=== PATIENT | female | born 1995 | race Caucasian/White ===

== ENCOUNTER 2020-05-26 04:57 | Inpatient (IN) | payer BC, SELFPAY ==
[2020-05-26] VITALS (177 sets, daily range): BP systolic 80–155; BP diastolic 28–94; PULSE 72–168; RESP 12–18; TEMP 36.5–38; O2SAT 94–100; BMI 29.2
[2020-05-26] MEDS: LACTATED RINGERS 1,000 ML 125 ML IV CONT ×3 (05:53→11:56)
[2020-05-26 05:54] LABS: Basophils Percent Auto 0.3 % (0.2-1.2); Eosinophils Absolute Auto 0.1 K/mm3 (0-0.3); Eosinophils Percent Auto 1.2 % (0-4.4); Hematocrit 38.3 % (37.0-47.0); Hemoglobin 13.2 g/dL (12.0-15.0); Immature Granulocyte Absolute 0.09 K/mm3 (0.00-0.031); Lymphocytes Absolute Auto 1.92 K/mm3 (0.9-3.2); Lymphocytes Percent Auto 20.4 % (18.3-44.2); Mean Corpuscular HGB Conc 34.5 g/dl (32-36); Mean Corpuscular Hemoglobin 30.9 pg (26-34); Mean Corpuscular Volume 89.7 fl (80-100); Mean Platelet Volume 9.5 fl (7.4-10.4); Monocytes Absolute Auto 0.7 K/mm3 (0.1-0.6); Monocytes Percent Auto 6.9 % (2.6-8.5); Neutrophils Absolute Auto 6.6 K/mm3 (1.3-6.7); Neutrophils Percent Auto 70.2 % (45.5-73.1); Platelet Count Result 228 k/mm3 (150-375); Red Blood Count 4.27 M/mm3 (4.2-5.4); Red Cell Distribution Width 12.6 % (11.5-14.5); White Blood Count 9.4 K/mm3 (4.5-10.0)
[2020-05-26] MEDS: OXYTOCIN 30 UNITS/NS 500 ML 30 UNITS/500 ML BAG 6 UNITS IV CONT (05:54)
--- NOTE | 2020-05-26 06:26 | PM.IMHP ---
H&P: HPI History of Present Illness Date/Time: 05/26/20 06:26 Chief complaint: Induction of Labor Narrative: Elizabeth Cole is a 25 year old female whose last menstrual period was 08/27/2019, EDC is 05/29/2020, presents at 39 and half weeks gestation for induction of labor. has been uncomplicated. She has a favorable cervix. Risks and benefits of induction reviewed. She has an epidural candidate Review of Systems Review of Systems: All systems reviewed & are unremarkable except as noted in HPI and below PMFSH Family History Family History Grandparent S/P MAXWELL (total abdominal hysterectomy) Cervical cancer Mother S/P MAXWELL (total abdominal hysterectomy) Cervical cancer Social History Social History Smoking status: Never smoker Substance use: never Spiritual care concerns: No Meds Home Medications and Allergies Home Medications Medication Instructions Recorded Confirmed Type PNV cmb#95-ferrous fumarate-FA 1 tablet PO DAILY 05/04/20 05/04/20 History [] Allergies Allergy/AdvReac Type Severity Reaction Status Date / Time No Known Allergies Allergy Verified 05/04/20 12:37 Vital Signs Vital Signs - 24 hr 05/26/20 06:00 05/26/20 06:01 05/26/20 06:16 Pulse Rate 101 H 92 93 Blood Pressure 119/79 127/84 127/85 Exam Const: General: no acute distress Eyes: General: appearance normal, both eyes and all related structures Neck: Neck: supple and no JVD Thyroid: thyroid normal Resp: Effort & Inspection: normal respiratory effort Auscultation: clear to auscultation bilaterally Cardio: Rate: regular rate Rhythm: regular rhythm GI: Percussion: Yes tympanic to percussion ( gravid soft uterus is palpated) : General: Yes bladder normal to palpation External Female Exam: normal external appearance Speculum Exam - Vagina: normal appearance of the vagina Speculum Exam - Cervix: Cervical os closed ( cervix 3/70%/-1. AROM clear. FHTs reassuring) Skin: General skin exam: no rashes or lesions noted Extrem: General: normal to inspection and no edema Psych: Mental Status: mental status grossly normal Affect: normal affect H&P: Results Labs Labs: Short CBC 05/26/20 Range/Units 05:45 WBC 9.4 (4.5-10.0) K/mm3 Hgb 13.2 (12.0-15.0) g/dL Hct 38.3 (37.0-47.0) % Plt Count 228 (150-375) k/mm3 Assessment and Plan Additional Plan impression: Term with favorable cervix Plan: Medical induction of labor. Spontaneous vaginal delivery is expected. She has an epidural candidate
--- NOTE | 2020-05-26 08:47 | P.PNAN_ITS ---
Anes - Eval Pre Procedure Procedure: labor epidural Date/Time: 05/26/20 08:47 Preop Diagnosis: labor pain Pre Op Diagnosis: Induction of Labor Patient Data Age: 25 Gender: F Height: 5 ft 3 in Weight: 75 kg Last Vital Signs Pulse 110 H 05/26/20 08:33 BP 132/56 L 05/26/20 08:33 Pulse Ox 95 05/26/20 08:47 Allergies Allergy/AdvReac Type Severity Reaction Status Date / Time No Known Allergies Allergy Verified 05/04/20 12:37 Home Medications Medication Instructions Recorded Confirmed Type PNV cmb#95-ferrous fumarate-FA 1 tablet PO DAILY 05/04/20 05/04/20 History [] Laboratory Tests 05/26/20 05/26/20 05/26/20 05:45 05:45 05:45 WBC 9.4 K/mm3 K/mm3 (4.5-10.0) RBC 4.27 M/mm3 M/mm3 (4.2-5.4) Hgb 13.2 g/dL g/dL (12.0-15.0) Hct 38.3 % % (37.0-47.0) MCV 89.7 fl fl (80-100) MCH 30.9 pg pg (26-34) MCHC 34.5 g/dl g/dl (32-36) RDW 12.6 % % (11.5-14.5) Plt Count 228 k/mm3 k/mm3 (150-375) MPV 9.5 fl fl (7.4-10.4) Immature Gran % (Auto) 1.0 % H % (0-0.5) Neut % (Auto) 70.2 % % (45.5-73.1) Lymph % (Auto) 20.4 % % (18.3-44.2) [place] % (Auto) 6.9 % % (2.6-8.5) Eos % (Auto) 1.2 % % (0-4.4) Baso % (Auto) 0.3 % % (0.2-1.2) Lymph # (Auto) 1.92 K/mm3 K/mm3 (0.9-3.2) [place] # (Auto) 0.7 K/mm3 H K/mm3 (0.1-0.6) Eos # (Auto) 0.1 K/mm3 K/mm3 (0-0.3) Baso # (Auto) 0.0 K/mm3 K/mm3 (0.0-0.1) Abs Immat Gran (auto) 0.09 K/mm3 H K/mm3 (0.00-0.031) Absolute Neuts (auto) 6.6 K/mm3 K/mm3 (1.3-6.7) Absolute Nucleated RBC 0.0 K/mm3 K/mm3 (0.0-0.012) Nucleated RBC % 0.0 % % (0.0-0.2) RPR Pending Blood Type O Positive Antibody Screen Negative Patient hx anesthesia problems: none Family hx anesthesia problems: none [facility] Family History Family History Grandparent S/P MAXWELL (total abdominal hysterectomy) Cervical cancer Mother S/P MAXWELL (total abdominal hysterectomy) Cervical cancer Social History Social History Smoking status: Never smoker Substance use: never Spiritual care concerns: No Exam Day of Procedure 05/26/20 08:47
[2020-05-26 08:50] LABS: Rapid Plasma Reagin Non-Reactive (NonReactive)
--- NOTE | 2020-05-26 11:46 | PM.OBPNVD ---
OB - PN: Subj Subjective Date/time seen: 05/26/20 11:46 cx 9 by rn exam fhts with variables but reassuring epidural working OB - PN: Obj Data Labs CBC & Chem 7: 05/26/20 05:45 Labs: Laboratory Results - last 24 hr 05/26/20 05/26/20 05/26/20 05:45 05:45 05:45 WBC 9.4 RBC 4.27 Hgb 13.2 Hct 38.3 MCV 89.7 MCH 30.9 MCHC 34.5 RDW 12.6 Plt Count 228 MPV 9.5 Immature Gran % (Auto) 1.0 H Neut % (Auto) 70.2 Lymph % (Auto) 20.4 [place] % (Auto) 6.9 Eos % (Auto) 1.2 Baso % (Auto) 0.3 Lymph # (Auto) 1.92 [place] # (Auto) 0.7 H Eos # (Auto) 0.1 Baso # (Auto) 0.0 Abs Immat Gran (auto) 0.09 H Absolute Neuts (auto) 6.6 Absolute Nucleated RBC 0.0 Nucleated RBC % 0.0 RPR Non-reactive Blood Type O Positive Antibody Screen Negative OB - PN A/P Time Spent With Patient Time: Total time spent is greater than 50% in coordination of care (as documented) at patient's floor/unit and/or counseling patient:
--- NOTE | 2020-05-26 16:12 | PM.OBPNVD ---
OB - PN: Subj Subjective Date/time seen: 05/26/20 16:12 cx complete fhts ok begin pushing OB - PN: Obj Data Labs CBC & Chem 7: 05/26/20 05:45 Labs: Laboratory Results - last 24 hr 05/26/20 05/26/20 05/26/20 05:45 05:45 05:45 WBC 9.4 RBC 4.27 Hgb 13.2 Hct 38.3 MCV 89.7 MCH 30.9 MCHC 34.5 RDW 12.6 Plt Count 228 MPV 9.5 Immature Gran % (Auto) 1.0 H Neut % (Auto) 70.2 Lymph % (Auto) 20.4 [place] % (Auto) 6.9 Eos % (Auto) 1.2 Baso % (Auto) 0.3 Lymph # (Auto) 1.92 [place] # (Auto) 0.7 H Eos # (Auto) 0.1 Baso # (Auto) 0.0 Abs Immat Gran (auto) 0.09 H Absolute Neuts (auto) 6.6 Absolute Nucleated RBC 0.0 Nucleated RBC % 0.0 RPR Non-reactive Blood Type O Positive Antibody Screen Negative OB - PN A/P Time Spent With Patient Time: Total time spent is greater than 50% in coordination of care (as documented) at patient's floor/unit and/or counseling patient:
--- NOTE | 2020-05-26 18:06 | P.PNOB_ITS ---
OB - PN: Subj Subjective Date/time seen: 05/26/20 18:06 recurrent lates, recovering offered section as no advancement patient aggrees OB - PN: Obj Data Labs CBC & Chem 7: 05/26/20 05:45 Labs: Laboratory Results - last 24 hr 05/26/20 05/26/20 05/26/20 05:45 05:45 05:45 WBC 9.4 RBC 4.27 Hgb 13.2 Hct 38.3 MCV 89.7 MCH 30.9 MCHC 34.5 RDW 12.6 Plt Count 228 MPV 9.5 Immature Gran % (Auto) 1.0 H Neut % (Auto) 70.2 Lymph % (Auto) 20.4 [place] % (Auto) 6.9 Eos % (Auto) 1.2 Baso % (Auto) 0.3 Lymph # (Auto) 1.92 [place] # (Auto) 0.7 H Eos # (Auto) 0.1 Baso # (Auto) 0.0 Abs Immat Gran (auto) 0.09 H Absolute Neuts (auto) 6.6 Absolute Nucleated RBC 0.0 Nucleated RBC % 0.0 RPR Non-reactive Blood Type O Positive Antibody Screen Negative OB - PN A/P Time Spent With Patient Time: Total time spent is greater than 50% in coordination of care (as documented) at patient's floor/unit and/or counseling patient:
--- NOTE | 2020-05-26 18:51 | PM.PROC ---
Procedure Note - Detailed Date of procedure: 05/26/20 Pre-op diagnosis: Induction of Labor Surgeon: Alejo Crabtree MD Postop diagnosis intolerance to labor Procedure: Primary low-transverse section Findings: Male infant nuchal cord x1 8 lb 12 oz from excellent cry Q BL: 600cc Anesthesia: Epidural Complications: None Description of procedure: The patient was brought in early a.m. for artificial rupture membranes at term. She progressed to 10cm although she did slow after about 9. IUPC was placed in she began to have recurrent late decelerations positioning IV fluids stopping Pitocin and the typical means for unsuccessful and decision was made for low-transverse section large PE was expected and progress was slow. After pain formed consent she was taken back prepped. She was prepped and draped in the normal sterile fashion and placed in the supine position. Under excellent epidural anesthesia a Pfannenstiel incision was made the incision progressive layers to fascia. Fascia was incised for about fashion bilaterally. Underlying muscles sharply dissected and parietal peritoneum elevated [place] clamp. This was carried superiorly and then inferiorly the dome of the bladder bladder blade placed and bladder flap was formed a low-transverse incision made the head delivered in the SHELBY position and nuchal cord was noted be loose x1 relieved around the occiput anterior posterior shoulder delivered spontaneously cord clamped x2 cut and passed off the table of next o'clock cry. Placenta delivered intact manually uterus delivered and wrapped in a moist towel. After assuring no membranes or debris remained uterus, the uterus was closed with continuous running locking 0 Vicryl from lateral edge to lateral edge. This was followed by a 2nd imbricating running locking 0 Vicryl from lateral edge to lateral edge hemostasis was assured and blood loss was estimated the uterine incision was clean dry and intact. The ovaries and tubes appeared within normal limits. The uterus returned to the abdomen. The lateral gutters and surgical area was cleaned of any debris. All sponge and needle counts were correct at that point. The fascia was then closed with continuous running 0 Vicryl from lateral edge to midline bilaterally. Irrigation was undertaken subcutaneous layer and the skin closed with 4 Monocryl and glue. Blood loss was estimated [id number]. All sponge, needle, instrument counts were correct. There were no immediate complications
[2020-05-26] MEDS: MEPERIDINE HCL INJ 50 MG/ML AMPUL 25 MG IV PUSH (19:15)
[2020-05-26] MEDS: ONDANSETRON INJ 4 MG/2 ML VIAL IV PUSH (19:40)
[2020-05-26] MEDS: KETOROLAC 30 MG/ML VIAL (*BKC) IV PUSH (19:42)
--- NOTE | 2020-05-26 22:42 | OBPPTRN ---
Patient transferred to post room # 286 via stretcher; transferred to bed. Support person and present. Oriented to unit, room, information board, rooming in, admission packet and security measures. Patient verbalizes understanding.
[2020-05-26] MEDS: DEXTROSE 5%/0.45% SOD CHL 1,000 ML 125 ML IV CONT (23:37)
[2020-05-27 00:20] VITALS: BP 105/63; PULSE 94; RESP 18; TEMP 36.7; O2SAT 98
[2020-05-27 05:00] VITALS: BP 108/67; PULSE 88; RESP 18; TEMP 36.8; O2SAT 100
[2020-05-27 05:38] LABS: Basophils Percent Auto 0.2 % (0.2-1.2); Eosinophils Percent Auto 0.2 % (0-4.4); Hematocrit 29.2 % (37.0-47.0); Hemoglobin 9.7 g/dL (12.0-15.0); Immature Granulocyte Absolute 0.13 K/mm3 (0.00-0.031); Immature Granulocyte Percent A 0.9 % (0-0.5); Lymphocytes Absolute Auto 1.45 K/mm3 (0.9-3.2); Lymphocytes Percent Auto 10.4 % (18.3-44.2); Mean Corpuscular HGB Conc 33.2 g/dl (32-36); Mean Corpuscular Hemoglobin 30.2 pg (26-34); Mean Platelet Volume 10.2 fl (7.4-10.4); Monocytes Percent Auto 6.8 % (2.6-8.5); Neutrophils Absolute Auto 11.4 K/mm3 (1.3-6.7); Neutrophils Percent Auto 81.5 % (45.5-73.1); Platelet Count Result 181 k/mm3 (150-375); Red Blood Count 3.21 M/mm3 (4.2-5.4); Red Cell Distribution Width 12.5 % (11.5-14.5)
--- NOTE | 2020-05-27 06:50 | PM.OBPNVD ---
OB - PN: Subj Subjective Date/time seen: 05/27/20 06:50 Patient comments: no complaints and pain well controlled baby status: doing well and nursing well OB - PN: Obj Data Labs CBC & Chem 7: 05/27/20 04:41 Labs: Laboratory Results - last 24 hr 05/26/20 05/26/20 05/27/20 05:45 05:45 04:41 WBC 14.0 H RBC 3.21 L Hgb 9.7 L D Hct 29.2 L MCV 91.0 MCH 30.2 MCHC 33.2 RDW 12.5 Plt Count 181 MPV 10.2 Immature Gran % (Auto) 0.9 H Neut % (Auto) 81.5 H Lymph % (Auto) 10.4 L [place] % (Auto) 6.8 Eos % (Auto) 0.2 Baso % (Auto) 0.2 Lymph # (Auto) 1.45 [place] # (Auto) 1.0 H Eos # (Auto) 0.0 Baso # (Auto) 0.0 Abs Immat Gran (auto) 0.13 H Absolute Neuts (auto) 11.4 H Absolute Nucleated RBC 0.0 Nucleated RBC % 0.0 RPR Non-reactive Blood Type O Positive Antibody Screen Negative OB - PN A/P Plan day: 1 Plan: routine care Time Spent With Patient Time: Total time spent is greater than 50% in coordination of care (as documented) at patient's floor/unit and/or counseling patient: Time with patient: less than 15 minutes Review of Systems Review of Systems: All systems reviewed & are unremarkable except as noted in HPI and below Exam Const: General: no acute distress Eyes: General: appearance normal, both eyes and all related structures Neck: Neck: supple and no JVD Thyroid: thyroid normal Resp: Effort & Inspection: normal respiratory effort Auscultation: clear to auscultation bilaterally Cardio: Rate: regular rate Rhythm: regular rhythm GI: Inspection: normal to inspection and incision (cdi) Percussion: Yes normal to percussion Auscultation: normal bowel sounds : General: Yes bladder normal to palpation External Female Exam: normal external appearance Speculum Exam - Vagina: normal vaginal discharge and No vaginal bleeding Speculum Exam - Cervix: nontender Bimanual exam- vagina & uterus: bladder normal to palpation and No Cervical tenderness present OB/external & speculum: No vaginal bleeding Skin: General skin exam: no rashes or lesions noted Extrem: General: normal to inspection and no edema Psych: Mental Status: mental status grossly normal Affect: normal affect
[2020-05-27 07:45] VITALS: BP 121/81; PULSE 95; RESP 16; TEMP 36.9; O2SAT 98
--- NOTE | 2020-05-27 08:12 | WPDANLDNPN2 ---
Anes-Prog Note L&D-Neuraxial Date/Time: 05/27/20 08:12 Neuraxial medications: epidural PF morphine Opiod-related complaints: none Patient feedback: Patient satisfied with post-operative pain management.
--- NOTE | 2020-05-27 08:12 | WPDANLDPN2 ---
Anes-Prog Note L&D Date/Time: 05/27/20 08:12 Comfortable throughout: section Neuraxial method: epidural Epidural/Spinal procedure site: clean & non-tender Neuro status: Neuro function grossly intact. Cardiovascular status: normal Respiratory status: normal Airway patency: baseline Mental status: baseline Post-Op hydration status: normal Vital Signs: Last Vital Signs Temp 36.8 C 05/27/20 05:00 Pulse 88 05/27/20 05:00 Resp 18 05/27/20 05:00 BP 108/67 05/27/20 05:00 Pulse Ox 100 05/27/20 05:00 I/O: Intake & Output 05/26/20 05/27/20 05/27/20 23:59 07:59 15:59 Intake Total 1100 1740 Output Total 800 2300 Balance 300 -560 Post-procedural complaints: none Patient feedback: Patient satisfied with anesthetic care.
--- NOTE | 2020-05-27 09:15 | PC.NURSE ---
Mother called out for assist with feeding. Mother reports she is using a nipple shield for all feedings. Infant has had several good feedings since reported by parents. Discussed nipple shield precautions and possible complications. Instructions given on application and cleaning of shield. Patient able to return demonstration on proper application of shield. Discussed the need to initiate regular pumping if infant continues to nurse with the shield. Patient verbalizes understanding. Reviewed infant feeding cues, frequencies, duration of feedings, feeding elimination flow sheet, and signs of adequate intake. Demonstrated stimulation techniques to wake infant for feeding. Assisted with to breast. Reviewed positioning/alignment in cross cradle, holding breast in U hold and guided asymmetrical latch on. Infant was able to latch correctly. Once was latched to breast he made no effort to suckle. Reviewed signs of a correct latch, effective nursing and suck swallow ratio, infant made a few weak sucks followed by long pausing. Discussed infant may be sleepy from recent circumcision and Tylenol. With in the 30 minute of attempt, nurse for bursts of good draws with rhythmic draws and occasional swallowing. Requested mother call out for next feeding for observation and to do a blood glucose check.
[2020-05-27] MEDS: POLYSACCHARIDE IRON COMPLEX 150 MG CAPSULE PO ×2 (09:50→17:52)
[2020-05-27] MEDS: IBUPROFEN 600 MG TABLET PO ×2 (09:51→19:43)
[2020-05-27] MEDS: MULTIVIT/MIN/PREN/FOL AC/IRON TABLET 1 TAB PO (09:51)
[2020-05-27] MEDS: DOCUSATE SODIUM 100 MG CAPSULE PO ×2 (09:51→17:52)
[2020-05-27 12:00] VITALS: BP 104/65; PULSE 91; RESP 16; TEMP 36.9; O2SAT 97
--- NOTE | 2020-05-27 13:00 | PC.NURSE ---
Breast pump provided due to nipple shield use/ineffective feeding. Instructions given on breast pump care and usage, pumping schedule, nipple care, and collection and storage of breast milk. Encouraged [id number], breast massage and manual expression to stimulate supply. Assessed patient for correct flange size, placement and draw. Patient verbalizes and demonstrates understanding of instructions.
[2020-05-27 16:00] VITALS: BP 111/71; PULSE 85; RESP 16; TEMP 37.2; O2SAT 98
[2020-05-27] MEDS: HYDROCORTISONE 1% 30 GM CREAM 1 APPLIC TOPICAL (17:52)
[2020-05-27 20:10] VITALS: BP 118/85; PULSE 100; RESP 15; TEMP 36.9; O2SAT 97
--- NOTE | 2020-05-28 07:41 | PM.DS ---
DS: Admitting Diagnosis Admitting Diagnosis Admitting Diagnosis: Induction of Labor DS: Summary Time Spent with Patient Time attestation: Total time spent providing and/or coordinating discharge services: Exam Const: General: no acute distress Eyes: General: appearance normal, both eyes and all related structures Neck: Neck: supple and no JVD Thyroid: thyroid normal Resp: Effort & Inspection: normal respiratory effort Auscultation: clear to auscultation bilaterally Cardio: Rate: regular rate Rhythm: regular rhythm GI: Inspection: non-distended GI Palp: Yes Soft to palpation, No Tenderness to palpation present (GI) and No Guarding due to palpation present (GI) Auscultation: normal bowel sounds : General: Yes bladder normal to palpation External Female Exam: normal external appearance Speculum Exam - Vagina: normal vaginal discharge and No vaginal bleeding Speculum Exam - Cervix: nontender Bimanual exam- vagina & uterus: bladder normal to palpation and No Cervical tenderness present OB/external & speculum: No vaginal bleeding Skin: General skin exam: no rashes or lesions noted Extrem: General: normal to inspection and no edema Psych: Mental Status: mental status grossly normal Affect: normal affect Discharge Plan Discharge Attending physician on discharge: Alejo Crabtree Consulting providers: Etelvina Saldaña Discharging Clinician: Alejo Crabtree Patient Disposition: Home, Self-Care Activity: may shower, no straining, may drive after 2 weeks, pelvic rest and other - see discharge instructions Diet: heart healthy Wound Care Instructions: follow printed instructions Patient Instructions: Antibiotic Form Stand Alone Forms: General Discharge Information Follow-up/Referrals: Alejo Crabtree MD [Physician] - Discharge Medications: New hydrocodone-acetaminophen [[place]] 5-325 mg tablet 1 tablet PO Q4H PRN (Reason: pain) Qty: 30 RF: 0 Continued PNV cmb#95-ferrous fumarate-FA [] 28 mg iron- 800 mcg Tablet 1 tablet PO DAILY RF: 0 Date of admission: 05/26/20 04:57 Primary Care Provider: PHYSICIAN,FIELD PRODUCER Admitting Provider: Alejo Crabtree Attending physician on admission: Alejo Crabtree
--- NOTE | 2020-05-28 07:42 | PM.OBPNVD ---
OB - PN: Subj Subjective Date/time seen: 05/28/20 07:42 Patient comments: no complaints and pain well controlled baby status: doing well and nursing well OB - PN: Obj Data Labs CBC & Chem 7: 05/27/20 04:41 OB - PN A/P Plan day: 2 Plan: routine care, discharge home and follow up 6 weeks (4 wweks) Time Spent With Patient Time: Total time spent is greater than 50% in coordination of care (as documented) at patient's floor/unit and/or counseling patient: Time with patient: less than 15 minutes Review of Systems Review of Systems: All systems reviewed & are unremarkable except as noted in HPI and below Exam Const: General: no acute distress Eyes: General: appearance normal, both eyes and all related structures Neck: Neck: supple and no JVD Thyroid: thyroid normal Resp: Effort & Inspection: normal respiratory effort Auscultation: clear to auscultation bilaterally Cardio: Rate: regular rate Rhythm: regular rhythm GI: Inspection: non-distended GI Palp: Yes Soft to palpation, No Tenderness to palpation present (GI) and No Guarding due to palpation present (GI) Auscultation: normal bowel sounds : General: Yes bladder normal to palpation External Female Exam: normal external appearance Speculum Exam - Vagina: normal vaginal discharge and No vaginal bleeding Speculum Exam - Cervix: nontender Bimanual exam- vagina & uterus: bladder normal to palpation and No Cervical tenderness present OB/external & speculum: No vaginal bleeding Skin: General skin exam: no rashes or lesions noted Extrem: General: normal to inspection and no edema Psych: Mental Status: mental status grossly normal Affect: normal affect
[2020-05-28 08:15] VITALS: BP 132/79; PULSE 99; RESP 18; TEMP 36.2; O2SAT 99
[2020-05-28] MEDS: MULTIVIT/MIN/PREN/FOL AC/IRON TABLET 1 TAB PO (08:58)
[2020-05-28] MEDS: POLYSACCHARIDE IRON COMPLEX 150 MG CAPSULE PO (08:58)
[2020-05-28] MEDS: IBUPROFEN 600 MG TABLET PO (08:58)
[2020-05-28] MEDS: DOCUSATE SODIUM 100 MG CAPSULE PO (08:58)
--- NOTE | 2020-05-28 10:45 | PC.NURSE ---
Mother is able to independently latch with appropriate positioning/alignment using nipple shield. She denies any nipple discomfort, is feeding as required and waking to feed if needed. Infant is more awake and eagerly feeding for bursts each feeding. has had several effective feedings in the past 24 hours, and is currently meeting outcomes for output, jaundice and feeding frequencies. is close to 8% weight loss and ICP has suggested supplementation until mother's milk is in and gaining weight. Discussed feeding plan to supplement 15-25 mils increasing as 's needs increase. Discussed her ICP will determine when supplementation may be discontinued by status. Mother may used EBM/formula as supplement. Mother is pumping after each feeding without difficulties. Discussed weaning techniques from shield and when infant may be ready to initiate weaning. Mother states she feels confident to continue effective /supplementation at home. Reviewed transition to breast milk, signs of adequate intake, and engorgement/relief. Instructed to call ICP if intake/output less than required. Reviewed regular medications mother is taking. Information provided per Catie. Reviewed community resources on the [facility] website and in the Mom/Baby guide. Information on outpatient services provided. Mother has no further questions at this time.
[2020-05-29 10:46] VITALS: BP 127/89; PULSE 88; RESP 20; TEMP 36.7; O2SAT 98
== END 2020-05-28 13:21 | disposition home or self-care (01) | DRG 787 ==
LOC: ANHLDR 05:03 → ANHOB2 21:35
PROVIDERS: Admitting Provider Obstetrics & Gynecology; Visit Provider Obstetrics & Gynecology
PROC: 10D00Z1 Extraction of Products of Conception, Low, Open Approach (ICD-10-PCS; CPT 59514; principal; 2020-05-26 18:15)
DX: O69.81X0 Labor and delivery complicated by cord around neck, without compression, not applicable or unspecified (principal); O75.2 Pyrexia during labor, not elsewhere classified; Z37.0 Single live birth; Z3A.39 39 weeks gestation of pregnancy; O36.8330 Maternal care for abnormalities of the fetal heart rate or rhythm, third trimester, not applicable or unspecified
CPT/HCPCS: 36415; 85025; 86592; 86850; 86900; 86901; A9270; J0131; J0690; J1885; J2175; J2274; J2405; J2590; J2795; J7120

== ENCOUNTER 2024-06-28 06:31 | Emergency (ER) | payer OTHER, SELFPAY ==
--- NOTE | ~2024-06-28 | CT_ITS ---
CT of the Abdomen and Pelvis: Indication: Epigastric pain Technique: 2.5 mm axial scans were obtained through the abdomen and pelvis following intravenous adm inistration of 100 cc of Omnipaque 350. Dose reduction technique was used on this scan by utilizing a utomated exposure control and iterative reconstruction technique. The dose-length product (DLP) was 2 78.74 mGy-cm. Findings: Scans through the lung bases are unremarkable. The liver, spleen, pancreas, gallbladder, adrenals and kidneys are within normal limits. No evidence of aortic aneurysm. No lymphadenopathy. No bowel obstruction or bowel wall thickening. Questionable intraluminal small bowel mass versus foca l intraluminal ingested contents (axial images [id number], left of midline.. Images through the pelvis were performed. Urinary bladder unremarkable. No pelvic mass seen. Small am ount of pelvic free fluid present. Impression: Questionable intraluminal small bowel mass versus focal intraluminal ingested material. No bowel obst ruction. Reviewed, dictated and finalized at location . Impression: Questionable intraluminal small bowel mass versus focal intraluminal ingested m aterial. No bowel obstruction.
--- NOTE | 2024-06-28 06:40 | ECG_ITS ---
Test Date: 2024-06-28 07:16:55 Measurements Intervals [facility] Rate: 87 P: 50 OR: 189 QRS: 79 QRSD: 94 T: 44 QT: 340 QTc: 409 Interpretive Statements SINUS RHYTHM WITH SINUS ARRHYTHMIA MODERATE T-WAVE ABNORMALITY, CONSIDER ANTERIOR ISCHEMIA [-0.1+ mV T-WAVE IN V3/V4] ABNORMAL ECG No previous ECG available for comparison Electronically Signed On 06-28-2024 12:33:39 CDT by Pritesh Acosta M.D.
[2024-06-28 06:51] VITALS: BP 144/95; PULSE 107; RESP 15; TEMP 36.6; O2SAT 100
[2024-06-28 07:11] LABS: Basophils Percent Auto 0.9 % (0.2-1.2); Eosinophils Absolute Auto 0.1 K/mm3 (0-0.3); Eosinophils Percent Auto 2.9 % (0-4.4); Hematocrit 40.5 % (37.0-47.0); Hemoglobin 13.4 g/dL (12.0-15.0); Immature Granulocyte Absolute 0.01 K/mm3 (0.00-0.031); Immature Granulocyte Percent A 0.2 % (0-0.5); Lymphocytes Absolute Auto 1.35 K/mm3 (0.9-3.2); Lymphocytes Percent Auto 29.7 % (18.3-44.2); Mean Corpuscular HGB Conc 33.1 g/dl (32-36); Mean Corpuscular Hemoglobin 29.3 pg (26-34); Mean Corpuscular Volume 88.6 fl (80-100); Mean Platelet Volume 9.2 fl (7.4-10.4); Monocytes Absolute Auto 0.3 K/mm3 (0.1-0.6); Monocytes Percent Auto 5.9 % (2.6-8.5); Neutrophils Absolute Auto 2.8 K/mm3 (1.3-6.7); Neutrophils Percent Auto 60.4 % (45.5-73.1); Platelet Count Result 265 k/mm3 (150-375); Red Blood Count 4.57 M/mm3 (4.2-5.4); Red Cell Distribution Width 11.6 % (11.5-14.5); White Blood Count 4.6 K/mm3 (4.5-10.0)
[2024-06-28 07:21] LABS: Alanine Aminotransferase 18 U/L (6-35); Albumin Level 4.7 g/dL (3.5-5.1); Alkaline Phosphatase 89 U/L (38-126); Anion Gap 11 mmol/L (4-12); Aspartate Amino Transferase 23 U/L (14-36); Bilirubin,Total 0.3 mg/dL (0.2-1.3); Blood Urea Nitrogen 17 mg/dL (7-17); Calcium 9.8 mg/dL (8.4-10.2); Carbon Dioxide 24 mmol/L (22-30); Chloride 103 mmol/L (98-107); Estimated CRCL calculation 96 ml/min; Estimated Glomerular Filt Rate > 60; Glucose 136 mg/dL (65-110); Lipase 67 U/L (23-300); Potassium 4.1 mmol/L (3.4-5.0); Sodium 138 mmol/L (137-145)
[2024-06-28] MEDS: ONDANSETRON INJ 4 MG/2 ML VIAL IV PUSH (07:40)
[2024-06-28] MEDS: FAMOTIDINE 20 MG/2 ML VIAL IV PUSH (07:40)
[2024-06-28 07:48] LABS: Add Urine Microscopic? NO; Appearance Urine Clear (Clear); Bilirubin Urine Negative (Negative); Blood Urine Negative (Negative); Color Urine Yellow (Yellow); Glucose Urine UA Negative (Negative); Ketones Urine Negative (Negative); Leukocyte Esterase Ur Negative LEU/UL (Negative); Nitrate Urine Negative (Negative); Protein Urine Negative (Negative); Specific Grav Ur 1.025 (1.001-1.035); Urobilinogen Urine 0.2 mg/dL (<2.0); pH Urine 6.5 (5.0-9.0)
--- NOTE | 2024-06-28 07:52 | ED.ABDPAIN ---
HPI - Abdominal Pain General Chief Complaint: Abdominal Pain Stated Complaint: epigastric pain X1 week Time Seen by Provider: 06/28/24 07:04 History of Present Illness HPI narrative: Patient presents with epigastric pain that started last night and woke her out of sleep, she had similar symptoms last week which he thought was because she had eaten a buffalo chicken sandwich, which got better after some Tums and patsy benito, this time she has some Sami fries and pizza. No significant nausea or vomiting. Had normal BMs Related Data Home Medications Medication Instructions Recorded Confirmed vit no.95-ferrous 1 tablet PO DAILY 05/04/20 05/04/20 fumarate 28 mg-folic acid 800 mcg tablet () Allergies Allergy/AdvReac Type Severity Reaction Status Date / Time No Known Allergies Allergy Verified 06/28/24 06:31 Review of Systems Review of Systems: All systems reviewed & are unremarkable except as noted in HPI and below PMFSH Family History Family History Grandparent S/P MAXWELL (total abdominal hysterectomy) Cervical cancer Mother S/P MAXWELL (total abdominal hysterectomy) Cervical cancer Social History Social History Smoking status: Never smoker Substance use: never Spiritual care concerns: No Exam Narrative: EXAMINATION OF ORGAN SYSTEMS/BODY AREAS: Constitutional: Vital signs per nursing GENERAL:[No acute distress, non-toxic appearing.] HEAD: Normal with no signs of head trauma. EYES: EOMI, conjunctiva normal ENT: Hearing grossly intact LUNGS: Nonlabored breathing. HEART: [Regular rate and rhythm] ABD: [Soft], slightly tender to palpation epigastric abdomen EXT: Normal range of motion SKIN: [No rashes or lesions.] NEURO: [Alert and oriented x 3. No gross focal sensory or strength deficits.] PSYCH: Normal affect Course Vital Signs Vital signs: Vital Signs Temperature 98 F 06/28/24 06:51 Pulse Rate 107 H 06/28/24 06:51 Respiratory Rate 15 06/28/24 06:51 Blood Pressure 144/95 H 06/28/24 06:51 Pulse Oximetry 100 06/28/24 06:51 Oxygen Delivery Room Air 06/28/24 06:51 Temperature 98 F 06/28/24 06:51 Pulse Rate 74 06/28/24 09:25 Respiratory Rate 16 06/28/24 09:25 Blood Pressure 122/83 06/28/24 09:25 Pulse Oximetry 100 06/28/24 09:25 Oxygen Delivery Room Air 06/28/24 06:51 MDM - Abdominal Pain MDM Narrative Medical decision making narrative: Electronic medical record was reviewed. Patient presented to the ED with complaint of [abdominal pain]. Vitals [were within acceptable limits]. Physical exam revealed [tenderness to palpation in epigastric abdomen]. Based on the patient's history and physical exam, my differential includes but is not limited to [gastritis, gastroenteritis, cholecystitis, pancreatitis, SBO]. [IV access was established by nursing staff. Patient was given zofran, famotidine]. CBC, BMP, lipase, LFTs, bilirubin and alk phos were obtained. Labs were pertinent for all labs within acceptable limits. [Decision was made to obtain a CT-abdomen to evaluate for acute abdominal process. CT-abdomen per radiology interpretation shows possible mass and small bowel.] On re-evaluation, patient still has some pain, so I did order a dose of IV morphine. There were no witnessed episodes of vomiting in the emergency department. They are not complaining of any new abdominal pain. Repeat examination did not show any significant guarding or rebound. No new tenderness. I did discuss the findings with the patient, especially since as a teenager she had had a similar presentation with a bowel obstruction but had extensive workup showing that there was not a mass, but never had follow-up with Gastroenterology, I did feel she would benefit from Gastroenterology follow-up for endoscopy to check for possible small-bowel mass versus
[2024-06-28 07:57] LABS: BEDSIDEPREGUCG Negative (Negative)
[2024-06-28] MEDS: MAG HYDROX/AL HYDROX/SIMETH 30 ML UDC PO (08:41)
[2024-06-28 09:25] VITALS: BP 122/83; PULSE 74; RESP 16; O2SAT 100
== END 2024-06-28 09:25 | disposition home or self-care (01) ==
PROVIDERS: Student in an Organized Health Care Education/Training Program; Emergency Provider Emergency Medicine
DX: R10.13 Epigastric pain (principal)
CPT/HCPCS: 36415; 74177; 80053; 81003; 81025; 83690; 85025; 93005; 96374; 96375; 99284; A9270; J2405; Q9967

== ENCOUNTER 2024-07-12 12:38 | Outpatient (CLI) | payer OTHER, SELFPAY ==
--- NOTE | ~2024-07-12 | XR_ITS ---
XR abdomen/kub 1V 07/12/2024 13:04 INDICATION: Flank pain TECHNIQUE: KUB COMPARISON: None FINDINGS: Bowel gas pattern is normal. Moderate colonic fecal loading. There is no evidence of free a ir, mass, organomegaly, ascites or obstruction. No abnormal calculi are seen. The bones appear inta ct. IMPRESSION: 1: No acute abdominal abnormality identified. Reviewed, dictated and finalized at location B.
== END 2024-07-12 12:39 | disposition home or self-care (01) ==
LOC: ANHIMG 12:40
PROVIDERS: Visit Provider Nurse Practitioner
DX: R10.13 Epigastric pain (principal); R93.3 Abnormal findings on diagnostic imaging of other parts of digestive tract; K59.09 Other constipation
CPT/HCPCS: 74018

== ENCOUNTER 2024-08-12 10:48 | Outpatient (CLI) | payer OTHER, SELFPAY ==
--- NOTE | ~2024-08-12 | CT_ITS ---
EXAMINATION: CT abdomen pelvis w con DATE: 08/12/2024 11:32 INDICATION: Small bowel mass. TECHNIQUE: Computed tomography (CT) of the abdomen and pelvis was performed with 100 mL Omnipaque 350 intravenous contrast. Automated exposure control and iterative reconstruction technique were employe d. The dose-length product was 344.71 mGy-cm. COMPARISON: CT abdomen and pelvis 06/28/2024 FINDINGS: The visualized portions of the lung bases demonstrate mild atelectasis. No pleural effusion . The heart size is normal. No pericardial effusion. The liver, gallbladder, spleen, pancreas, adrena l glands, and kidneys are normal. There is a large volume of stool in the colon. There are no patholo gically enlarged lymph nodes. There is no free intraperitoneal fluid. The bones are unremarkable. IMPRESSION: 1. No abnormal small bowel mass. The finding on the prior CT has resolved and was likely normal bowel contents. Reviewed, dictated and finalized at location A. ARCH AND DEVELOPMENT DIRECTOR IMPRESSION: 1. No abnormal small bowel mass. The finding on the prior CT has resolved and w as likely normal bowel contents.
== END 2024-08-12 10:49 | disposition home or self-care (01) ==
PROVIDERS: PCP Nurse Practitioner; Visit Provider Nurse Practitioner
DX: R93.3 Abnormal findings on diagnostic imaging of other parts of digestive tract (principal)
CPT/HCPCS: 74177; Q9967

== ENCOUNTER 2024-08-22 01:30 | Day surgery (SDC) | payer OTHER, SELFPAY ==
[2024-08-02 15:07] VITALS: BMI 23.0
[2024-08-22 11:10] VITALS: BP 129/78; PULSE 82; RESP 18; TEMP 36.6; O2SAT 100; BMI 23.8
[2024-08-22 11:17] LABS: BEDSIDEPREGUCG Negative (Negative)
[2024-08-22] MEDS: LACTATED RINGERS 1,000 ML 150 ML IV CONT (11:19)
--- NOTE | 2024-08-22 12:05 | P.PNAN_ITS ---
Anes - Initial Pre Proc Eval Procedure: Operation Date: 08/22/24 12:30 Proposed Procedures p Esophagogastroduodenoscopy - Angelito Wood MD Date/Time: 08/22/24 12:05 Surgeon: Angelito Wood MD Pre Op Diagnosis: Epigastric pain,Abnormal findings on diagnostic Patient Data Age: 29 Gender: F Height: 1.6 m Weight: 60.9 kg Last Vital Signs Temp 36.6 C 08/22/24 11:10 Pulse 82 08/22/24 11:10 Resp 18 08/22/24 11:10 BP 129/78 08/22/24 11:10 Pulse Ox 100 08/22/24 11:10 O2 Del Method Room Air 08/22/24 11:10 Allergies Allergy/AdvReac Type Severity Reaction Status Date / Time No Known Allergies Allergy Verified 08/22/24 11:06 Home Medications Medication Instructions Recorded Confirmed Type omeprazole 20 mg capsule,delayed 20 mg PO DAILY #30 caps 07/12/24 08/22/24 Rx release polyethylene glycol 3350 17 1 g PO EVERY OTHER DAY 08/02/24 08/22/24 History gram/dose oral powder (Miralax) Laboratory Tests 08/22/24 11:08 POC Urine HCG, Qual Negative (Negative) Patient hx anesthesia problems: none Family hx anesthesia problems: none Results Review: All pre-operative results and documents have been reviewed as part of the pre- operative evaluation. [facility] Family History Family History Grandparent S/P MAXWELL (total abdominal hysterectomy) Cervical cancer Mother S/P MAXWELL (total abdominal hysterectomy) Cervical cancer Social History Social History Smoking status: Never smoker Alcohol intake: never Substance use: never Substance use type: does not use Living arrangements: with family Spiritual care concerns: No Anes - Eval Final PreProcedure Day of Procedure 08/22/24 12:05 Patient weight: normal Lungs: normal air movement Airway: Mallampati scale class II Neurological: alert and oriented Last oral intake: >/= 8 hours ASA classification: I Emergent: no Anesthetic plan: proceed Anesthesia type and monitoring: general GIVS and standard monitoring Results Review: All pre-operative results and documents have been reviewed as part of the pre- operative evaluation. Informed Consent: The patient's anesthetic plan and its attendant risks and benefits were discussed with the patient/family/POA. Questions were solicited and answers provided to the satisfaction of the patient/family/POA.
--- NOTE | 2024-08-22 12:17 | PM.IMHP ---
H&P: HPI History of Present Illness Date/Time: 08/22/24 12:17 Chief Complaint: Epigastric pain episodes. Narrative: This patient has been complaining of severe epigastric pain episodes for the past few months, even requiring emergency room visits. Imaging studies such as ultrasound or CT scans have been performed with no specific diagnosis. She is down here for EGD, to rule out peptic ulcer disease, gastritis or related diseases. Review of Systems Review of Systems: All systems reviewed & are unremarkable except as noted in HPI and below PMFSH Family History Family History Grandparent S/P MAXWELL (total abdominal hysterectomy) Cervical cancer Mother S/P MAXWELL (total abdominal hysterectomy) Cervical cancer Social History Social History Smoking status: Never smoker Alcohol intake: never Substance use: never Substance use type: does not use Living arrangements: with family Spiritual care concerns: No Meds Home Medications and Allergies Home Medications Medication Instructions Recorded Confirmed Type omeprazole 20 mg capsule,delayed 20 mg PO DAILY #30 caps 07/12/24 08/22/24 Rx release polyethylene glycol 3350 17 1 g PO EVERY OTHER DAY 08/02/24 08/22/24 History gram/dose oral powder (Miralax) Allergies Allergy/AdvReac Type Severity Reaction Status Date / Time No Known Allergies Allergy Verified 08/22/24 11:06 Vital Signs Vital Signs - 24 hr 08/22/24 11:10 Temperature 97.9 F Pulse Rate 82 Respiratory Rate 18 Blood Pressure 129/78 Pulse Oximetry 100 Oxygen Delivery Room Air Exam Const: General: cooperative and healthy appearing Resp: Effort & Inspection: normal respiratory effort and able to speak in complete sentences Auscultation: clear to auscultation bilaterally Cardio: Rate: regular rate Rhythm: regular rhythm GI: Inspection: normal to inspection GI Palp: No No hepatosplenomegaly present Auscultation: normal bowel sounds Rectal Exam: deferred Skin: General skin exam: normal color Psych: Appearance: grossly normal Mental Status: mental status grossly normal Assessment and Plan Assessment and plan (1) Epigastric abdominal pain: Code(s): R10.13 - Epigastric pain Status: Acute Assessment and Plan: The patient is deemed a good candidate for the procedure. Consent signed. Will proceed.
[2024-08-22 12:28] VITALS: BP 101/62; PULSE 97; RESP 24; O2SAT 100
[2024-08-22 12:38] VITALS: BP 101/65; PULSE 90; RESP 18; O2SAT 100
[2024-08-22 12:48] VITALS: BP 114/75; PULSE 84; RESP 16; O2SAT 100
== END 2024-08-22 13:05 | disposition home or self-care (01) ==
PROVIDERS: Anesthesiology; PCP Nurse Practitioner; Visit Provider Internal Medicine Gastroenterology
PROC: 0DJ08ZZ Inspection of Upper Intestinal Tract, Via Natural or Artificial Opening Endoscopic (ICD-10-PCS; CPT 43235; principal; 2024-08-22 12:30)
DX: R93.3 Abnormal findings on diagnostic imaging of other parts of digestive tract (principal); Z80.49 Family history of malignant neoplasm of other genital organs
CPT/HCPCS: 43239; 88305; J2003; J2704; J7120

== ENCOUNTER 2024-08-31 07:32 | Outpatient (CLI) | payer OTHER, SELFPAY ==
--- NOTE | ~2024-08-31 | US_ITS ---
EXAMINATION: US abdomen limited DATE: 08/31/2024 07:51 INDICATION: abdominal pain TECHNIQUE: Multiple grayscale and Doppler ultrasound images of limited portions of the abdomen were o btained. COMPARISON: CT abdomen pelvis 06/28/2024. FINDINGS: The visualized portions of the pancreas are normal. The liver is normal with normal echogen icity and echotexture. No surface nodularity. Normal hepatopetal flow in the main portal vein. Echoge raj mobile foci with posterior shadowing and associated sludge. No wall thickening or pericholecystic fluid. The common bile duct measures 5 mm. There was no sonographic Bui sign. IMPRESSION: Cholelithiasis, without sonographic findings of acute cholecystitis. Otherwise normal limited abdomin al ultrasound findings. Reviewed, dictated and finalized at location K. UNITY OUTREACH SPECIALIST IMPRESSION: Cholelithiasis, without sonographic findings of acute cholecystitis. Otherwise normal limited abdominal ultrasound findings.
== END 2024-08-31 07:33 | disposition home or self-care (01) ==
LOC: MICIMG 07:32
PROVIDERS: PCP Nurse Practitioner; Visit Provider Nurse Practitioner
DX: R10.13 Epigastric pain (principal); K80.20 Calculus of gallbladder without cholecystitis without obstruction
CPT/HCPCS: 76705

== ENCOUNTER 2024-09-02 10:08 | Outpatient (CLI) | payer OTHER, SELFPAY ==
--- NOTE | ~2024-09-02 | NM_ITS ---
EXAMINATION: NM hepatobiliary wo pharm DATE: 09/02/2024 14:49 INDICATION: Epigastric pain COMPARISON: None. TECHNIQUE: 4.8 mCi Tc-99m mebrofenin (Choletec) was administered intravenously. Scintigraphic images of the abdomen were obtained for one hour. Additional one-hour and 4 hour delay scintigrams were obt ained and the right lateral projections. FINDINGS: There is normal clearance of radiotracer from the blood pool. There is homogeneous tracer u ptake by the liver. Activity progresses to the bowel by 15 minutes. Activity is seen in the gallblad bryanna on the 4 hour delayed images. IMPRESSION: 1. Delayed filling of the gallbladder which could be seen in setting of chronic cholecystitis and ei ther prolonged fasting or recent ingestion. Reviewed, dictated and finalized at location A. RUBBER MIXER IMPRESSION: 1. Delayed filling of the gallbladder which could be seen in setting of chroni c cholecystitis and either prolonged fasting or recent ingestion.
== END 2024-09-02 10:09 | disposition home or self-care (01) ==
LOC: ANHIMG 10:10
PROVIDERS: PCP Nurse Practitioner; Visit Provider Nurse Practitioner
DX: R93.2 Abnormal findings on diagnostic imaging of liver and biliary tract (principal); R10.13 Epigastric pain
CPT/HCPCS: 78226; A9537

== ENCOUNTER 2024-09-02 21:49 | Observation (INO) | payer OTHER, SELFPAY ==
--- NOTE | ~2024-09-02 | CT_ITS ---
CT of the Abdomen and Pelvis: Indication: Abdominal pain Technique: 2.5 mm axial scans were obtained through the abdomen and pelvis following intravenous adm inistration of 100 cc of Omnipaque 350. Dose reduction technique was used on this scan by utilizing a utomated exposure control and iterative reconstruction technique. The dose-length product (DLP) was 3 21.24 mGy-cm. COMPARISON: 08/12/2024 Findings: Scans through the lung bases are unremarkable. The liver, spleen, pancreas, adrenals and kidneys are within normal limits. Gallbladder is distended, no definite wall thickening or adjacent inflammatory change. No evidence of aortic aneurysm. No lym phadenopathy. No bowel obstruction or bowel wall thickening. Prominent stool suggests constipation. Images through the pelvis were performed. Urinary bladder unremarkable. No adnexal mass seen. No asci danya. Impression: Constipation. Distended gallbladder without other CT abnormality. If there is clinical concern for gallbladder path ology, then consider ultrasound for further evaluation. Reviewed, dictated and finalized at location . PROGRAMMER REMOTE Impression: Constipation. Distended gallbladder without other CT abnormality. If there is clinical concer n for gallbladder pathology, then consider ultrasound for further evaluation.
[2024-09-02 21:50] VITALS: BP 127/81; PULSE 74; RESP 28; TEMP 36.6; O2SAT 100
[2024-09-02 23:31] LABS: Basophils Percent Auto 0.3 % (0.2-1.2); Eosinophils Absolute Auto 0.1 K/mm3 (0-0.3); Eosinophils Percent Auto 1.1 % (0-4.4); Hematocrit 39.7 % (37.0-47.0); Hemoglobin 13.3 g/dL (12.0-15.0); Immature Granulocyte Absolute 0.04 K/mm3 (0.00-0.031); Immature Granulocyte Percent A 0.4 % (0-0.5); Lymphocytes Absolute Auto 1.88 K/mm3 (0.9-3.2); Lymphocytes Percent Auto 18.3 % (18.3-44.2); Mean Corpuscular HGB Conc 33.5 g/dl (32-36); Mean Corpuscular Hemoglobin 29.2 pg (26-34); Mean Corpuscular Volume 87.1 fl (80-100); Mean Platelet Volume 9.4 fl (7.4-10.4); Monocytes Absolute Auto 0.5 K/mm3 (0.1-0.6); Monocytes Percent Auto 4.6 % (2.6-8.5); Neutrophils Absolute Auto 7.7 K/mm3 (1.3-6.7); Neutrophils Percent Auto 75.3 % (45.5-73.1); Platelet Count Result 273 k/mm3 (150-375); Red Blood Count 4.56 M/mm3 (4.2-5.4); Red Cell Distribution Width 11.8 % (11.5-14.5); White Blood Count 10.3 K/mm3 (4.5-10.0)
[2024-09-02 23:41] LABS: Alanine Aminotransferase 60 U/L (6-35); Albumin Level 4.7 g/dL (3.5-5.1); Alkaline Phosphatase 119 U/L (38-126); Anion Gap 6 mmol/L (4-12); Aspartate Amino Transferase 118 U/L (14-36); Bilirubin,Total 0.5 mg/dL (0.2-1.3); Blood Urea Nitrogen 20 mg/dL (7-17); Calcium 9.1 mg/dL (8.4-10.2); Carbon Dioxide 29 mmol/L (22-30); Chloride 101 mmol/L (98-107); Estimated CRCL calculation 83 ml/min; Estimated Glomerular Filt Rate > 60; Glucose 120 mg/dL (65-110); Lipase 66 U/L (23-300); Potassium 3.6 mmol/L (3.4-5.0); Sodium 136 mmol/L (137-145)
[2024-09-03] VITALS (14 sets, daily range): BP systolic 104–125; BP diastolic 62–89; PULSE 77–100; RESP 10–18; TEMP 36.2–36.6; O2SAT 97–100; BMI 23.5
[2024-09-03] LABS: Add Urine Microscopic? YES; Appearance Urine Turbid (Clear); Bacteria Urine Rare /hpf; Bilirubin Urine Negative (Negative); Blood Urine Negative (Negative); Color Urine Yellow (Yellow); Glucose Urine UA Negative (Negative); Ketones Urine Negative (Negative); Leukocyte Esterase Ur Negative LEU/UL (Negative); Need Manual Microscopic Reviewed; Nitrate Urine Negative (Negative); Protein Urine 1+ mg/dL (Negative); RBC Urine 0-2 /hpf (0-2); Specific Grav Ur 1.026 (1.001-1.035); Squamous Epithelial Cell Urine Few /hpf (Few); pH Urine 7.5 (5.0-9.0)
[2024-09-03 00:01] LABS: Amorphous Sediment Urine Few
[2024-09-03] MEDS: ONDANSETRON INJ 4 MG/2 ML VIAL IV PUSH ×3 (00:34→13:54)
[2024-09-03] MEDS: HYDROmorphone HCL INJ (*CRX) 1 MG/ML SYR IV PUSH ×2 (00:36→05:42)
[2024-09-03 00:37] LABS: BEDSIDEPREGUCG Negative (Negative)
[2024-09-03] MEDS: SODIUM CHLORIDE 0.9% IV 1,000 ML 999 ML IV CONT (00:37)
--- NOTE | 2024-09-03 01:15 | ED_ITS ---
HPI - General Adult General Chief complaint: Nausea/Vomiting/Diarrhea Stated complaint: gallbladder shutting down Time Seen by Provider: 09/03/24 00:13 History of Present Illness HPI narrative: patient is a 29-year-old female who presents emergency department with chief complaint of I think I have a problem with my gallbladder. Patient reports that she was seen in the emergency department recently has followed up with GI had a ultrasound of her gallbladder that showed gallstones and sludge the patient had a HIDA scan done as an outpatient that they were unable to complete due to the inability to visualize the gallbladder. Patient reports that she started having severe pain in the right upper quadrant reports he is unable to get comfortable in any position Related Data Home Medications ?Medication ?Instructions ?Recorded ?Confirmed ?Last Taken ?Type polyethylene glycol 3350 17 1 g PO EVERY OTHER DAY 08/02/24 08/22/24 08/20/24 History gram/dose oral powder (Miralax) Allergies Allergy/AdvReac Type Severity Reaction Status Date / Time No Known Allergies Allergy Verified 09/02/24 21:58 Review of Systems 2 Review of Systems: A 10 system review of systems was completed on the patient and is negative except for what is stated in the HPI. Nursing and ancillary documentation was reviewed. [facility] Family History Family History Grandparent S/P MAXWELL (total abdominal hysterectomy) Cervical cancer Mother S/P MAXWELL (total abdominal hysterectomy) Cervical cancer Social History Social History Smoking status: Never smoker Alcohol intake: never Substance use: never Substance use type: does not use Living arrangements: with family Spiritual care concerns: No Exam 2 Narrative: GENERAL: Well-appearing, well-nourished, and in moderate acute pain distress. HEAD: Normocephalic, atraumatic. EYES: PERRLA and EOMI. ENT: Nares clear, no rhinorrhea or epistaxis. Mucous membranes moist. NECK: Supple. CHEST: Clear to auscultation. No respiratory distress. HEART: Regular rate and rhythm. No murmur heard. Normal peripheral pulses. ABDOMEN: Soft, tenderness to palpation the right upper quadrant, nondistended, normal active bowel sounds. EXTREMITIES: Normal range of motion. No edema. SKIN: Warm, dry, no rash. NEURO: No focal deficits. Alert and oriented x3. PSYCH: Normal mood and affect. Course Vital Signs Vital signs: Vital Signs Temperature 36.6 C 09/02/24 21:50 Pulse Rate 74 09/02/24 21:50 Respiratory Rate 28 H 09/02/24 21:50 Blood Pressure 127/81 09/02/24 21:50 Pulse Oximetry 100 09/02/24 21:50 Oxygen Delivery Room Air 09/02/24 21:50 Temperature 36.6 C 09/02/24 21:50 Pulse Rate 95 09/03/24 02:00 Respiratory Rate 15 09/03/24 02:00 Blood Pressure 120/82 09/03/24 02:00 Pulse Oximetry 100 09/03/24 02:00 Oxygen Delivery Room Air 09/02/24 21:50 Medical Decision Making MDM Narrative Medical decision making narrative: differential diagnosis includes acute cholecystitis, choledocholithiasis, biliary colic the patient is currently afebrile white count is 10.3 electrolytes were within normal limits liver enzymes showed a normal bilirubin but AST of 118 and ALT of 60. Lipase was normal at 66 urinalysis showed 6-10 white blood cells. Patient had a recent ultrasound that showed cholelithiasis the patient was undergoing a HIDA scan as an outpatient that per patient report they were unable to find the gallbladder. Due to the patient's liver enzymes being elevated a CT scan was obtained that showed no significant increase in the size the common bile duct the case was discussed with General surgery on-call who will accept the patient patient was started of the patient Vital Signs Vital Signs: Vital Signs Temperature 36.6 C 09/02/24 21:50 Pulse Rate 74 09/02/24 21:50 Respiratory Rate 28 H 09/02/24 21:50 Blood Pressure 127/81 09/02/24 21:50 Pulse Oximetry 100 09/02/24 21:50 Oxygen Delivery Room Air 09/02/24 21:50 Temperature 36.6 C 09/02/24 21:50 Pulse Rate 95 09/03/24 02:00 Respiratory Rate 15 09/03/24 02:00 Blood Pressure 120/82 09/03/24 02:00 Pulse Oximetry 100 09/03/24 02:00 Oxygen Delivery Room Air 09/02/24 21:50 Lab Data 09/02/24 23:23 09/02/24 23:23 Labs: Lab Results 09/02/24 09/02/24 09/03/24 Range/Units 23:23 23:30 00:35 WBC 10.3 H (4.5-10.0) K/mm3 RBC 4.56 (4.2-5.4) M/mm3 Hgb 13.3 (12.0-15.0) g/dL Hct 39.7 (37.0-47.0) % MCV 87.1 (80-100) fl MCH 29.2 (26-34) pg MCHC 33.5 (32-36) g/dl RDW 11.8 (11.5-14.5) % Plt Count 273 (150-375) k/mm3 MPV 9.4 (7.4-10.4) fl Immature Gran % (Auto) 0.4 (0-0.5) % Neut % (Auto) 75.3 H (45.5-73.1) % Lymph % (Auto) 18.3 (18.3-44.2) % [place] % (Auto) 4.6 (2.6-8.5) % Eos % (Auto) 1.1 (0-4.4) % Baso % (Auto) 0.3 (0.2-1.2) % Lymph # (Auto) 1.88 (0.9-3.2) K/mm3 [place] # (Auto) 0.5 (0.1-0.6) K/mm3 Eos # (Auto) 0.1 (0-0.3) K/mm3 Baso # (Auto) 0.0 (0.0-0.1) K/mm3 Abs Immat Gran (auto) 0.04 H (0.00-0.031) K/mm3 Absolute Neuts (auto) 7.7 H (1.3-6.7) K/mm3 Absolute Nucleated RBC 0.000 (0.0-0.012) K/mm3 Nucleated RBC % 0.0 (0.0-0.2) % Sodium 136 L (137-145) mmol/L Potassium 3.6 (3.4-5.0) mmol/L Chloride 101 (98-107) mmol/L Carbon Dioxide 29 (22-30) mmol/L Anion Gap 6 (4-12) mmol/L BUN 20 H (7-17) mg/dL Creatinine 0.70 (0.7-1.0) mg/dL Estim Creat Clear Calc 83 ml/min Estimated GFR > 60 (59 - ) Glucose 120 H (65-110) mg/dL Calcium 9.1 (8.4-10.2) mg/dL Total Bilirubin 0.5 (0.2-1.3) mg/dL AST 118 H (14-36) U/L ALT 60 H (6-35) U/L Alkaline Phosphatase 119 (38-126) U/L Total Protein 8.0 (6.3-8.2) g/dL Albumin 4.7 (3.5-5.1) g/dL Lipase 66 (23-300) U/L Urine Color Yellow (Yellow) Urine Appearance Turbid H (Clear) Urine pH 7.5 (5.0-9.0) Ur Specific [place] 1.026 (1.001-1.035) Urine Protein 1+ H (Negative) mg/dL Urine Glucose (UA) Negative (Negative) mg/dL Urine Ketones Negative (Negative) mg/dL Ur Blood (Man) Negative (Negative) Urine Nitrate Negative (Negative) Urine Bilirubin Negative (Negative) Urine Urobilinogen 1.0 (<2.0) mg/dL Add Ur Microanalysis Reviewed Leukocyte Esterase Rfl Negative (Negative) XIOMY/UL Urine RBC 0-2 (0-2) /hpf Urine WBC 6-10 H (0-3) /hpf Ur Squamous Epith Cells Few (Few) /hpf Amorphous Sediment Few H (None) Urine Bacteria Rare /hpf Urine Casts 6-10 POC Urine HCG, Qual Negative (Negative) Discharge Plan Discharge Clinical Impression: Acute cholecystitis Patient Disposition: Still a Patient Condition: Stable Patient Language: Swiss Prescriptions: No Action omeprazole 20 mg capsule,delayed release(DR/EC) 20 mg PO DAILY Qty: 30 2RF polyethylene glycol 3350 [Miralax] 17 gram/dose Powder 1 g PO EVERY OTHER DAY Follow-up/Referrals: Amee Jackson APRN [Primary Care Provider] - Time of Disposition: 05:25
[2024-09-03] MEDS: PROCHLORPERAZINE EDISYLATE 10 MG/2 ML VIAL IV PUSH (01:59)
[2024-09-03] MEDS: PIPERACILLN/TAZ 3.375GM/NS50ML 3.375 GM/50 ML BAG IVPB (05:43)
--- NOTE | 2024-09-03 06:07 | ADMGEN ---
This patient, Elizabeth Cole, was admitted to Medical Room 252-01. Patient/family oriented to hospital policies and general routines including ID bracelet, bed and alarms, visiting hours, pain management, procedures, bathroom and other care routines, personal items, smoking policy, room service/diet, and visiting hours. Information on how to activate the Rapid Response Team has been discussed. Patient/Family are encouraged to report perceived risks to care and to ask questions if they do not understand what they are told or what they should do.
[2024-09-03] MEDS: SODIUM CHLORIDE 0.9% IV 1,000 ML 125 ML IV CONT (07:03)
--- NOTE | 2024-09-03 09:24 | P.HP_ITS ---
H&P: HPI History of Present Illness Date/Time: 09/03/24 09:24 Chief Complaint: Abdominal pain Narrative: This is a 29-year-old woman who presented to the ED with complaints of epigastric abdominal pain. She has been experiencing epigastric pain for a few months, that has progressively become more frequent. She reports the pain as epigastric pain that would radiate across her upper abdomen. No other associat ed symptoms are nausea or vomiting. Her pain would typically resolve with time, but she began to have pain multiple times a week. She was eventually evaluated by GI as an outpatient after 1 of her episodes brought her into the ED in June. She had an EGD that was normal on 08/22/2024. The only abnormalities in her workup was cholelithiasis seen on an outpatient abdominal ultrasound. They have ordered a HIDA scan as an outpatient, which she had done yesterday. She was told there is no filling of her gallbladder after a few hours of images and she was told by the tech that she likely had a gallbladder that was not functioning. Following the test, she felt bloated and after returning home, she developed recurrent epigastric abdominal pain. Her pain was more severe than previous episodes at home. She also developed nausea and vomiting, which had not happened with previous episodes. She then decided come to the ED for evaluation due to the severity of her pain. Labs showed a white blood cell count 82064, AST 118, ALT 60, alk-phos and total bilirubin normal. Lipase normal. CT scan of the abdomen and pelvis showed a distended gallbladder. She is now seen on the medical floor. She continues to have abdominal pain. Only previous abdominal surgery was a delivery. Review of Systems Review of Systems: All systems reviewed & are unremarkable except as noted in HPI and below PMFSH Surgical History Surgical History History of Family History Family History Grandparent S/P MAXWELL (total abdominal hysterectomy) Cervical cancer Mother S/P MAXWELL (total abdominal hysterectomy) Cervical cancer Social History Social History Smoking status: Never smoker Alcohol intake: never Substance use: never Substance use type: does not use Do You Feel Safe in your Home?: Yes Lack of Transportation: No Lack of Food: Never True Current Housing: I Have Housing Concerned About Future Housing: No Difficulty Paying Gas/Electric Bills: No Difficulty Paying for Meds: No Currently Unemployed: No Education: Master's Degree or Higher Difficulty w/ Childcare or Family Care: No Living arrangements: with family Spiritual care concerns: No Meds Home Medications and Allergies Home Medications ?Medication ?Instructions ?Recorded ?Confirmed ?Type omeprazole 20 mg capsule,delayed 20 mg PO DAILY #30 caps 07/12/24 09/03/24 Rx release polyethylene glycol 3350 17 1 g PO EVERY OTHER DAY 08/02/24 09/03/24 History gram/dose oral powder (Miralax) wheat dextrin 3 gram/3.8 gram oral 1.5 g PO DAILY 09/03/24 09/03/24 History powder (Benefiber Sugar Free (dextrin)) Allergies Allergy/AdvReac Type Severity Reaction Status Date / Time No Known Allergies Allergy Verified 09/03/24 05:49 Vital Signs Vital Signs - 24 hr 09/02/24 21:50 09/03/24 02:00 09/03/24 05:43 Temperature 97.9 F Pulse Rate 74 95 92 Respiratory Rate 28 H 15 15 Blood Pressure 127/81 120/82 104/68 Pulse Oximetry 100 100 100 Oxygen Delivery Room Air 09/03/24 06:08 09/03/24 06:16 Temperature 97.8 F Pulse Rate 81 Respiratory Rate 16 Blood Pressure 105/67 Pulse Oximetry 99 Oxygen Delivery Room Air Exam Const: General: comfortable and no acute distress Nutritional Appearance: average body habitus Orientation/consciousness: patient oriented x3 HENMT: Head: normocephalic and atraumatic Ears: hearing grossly normal bilaterally Mouth: Yes moist mucous membranes Eyes: General: appearance normal, both eyes and all related structures Pupils: Equal, round and reactive pupils present Neck: Neck: normal visual inspection and full ROM Resp: Effort & Inspection: no respiratory distress Auscultation: clear to auscultation bilaterally Cardio: Rate: regular rate Rhythm: regular rhythm Peripheral pulses: Peripheral pulses 2+ throughout GI: Inspection: non-distended and scar (Pfannenstiel) GI Palp: Yes Soft to palpation, Yes Tenderness to palpation present (GI) (epigastric and RUQ), Yes Guarding due to palpation present (GI) (RUQ), Yes No hepatosplenomegaly present and No Rebound tenderness present Percussion: Yes normal to percussion Auscultation: normal bowel sounds Skin: General skin exam: normal color Neuro: General: moves all extremities and no focal motor deficits Speech: normal speech Motor exam (neuro): 5/5 motor strength present throughout Extrem: General: normal to inspection and no edema Psych: Mental Status: mental status grossly normal Attitude: cooperative Insight: Good insight present (Psych) Judgement: Good judgement present (Psych) H&P: Results Labs Labs: Short CBC 09/02/24 Range/Units 23:23 WBC 10.3 H (4.5-10.0) K/mm3 Hgb 13.3 (12.0-15.0) g/dL Hct 39.7 (37.0-47.0) % Plt Count 273 (150-375) k/mm3 BMP 09/02/24 23:23 Sodium 136 L Potassium 3.6 Chloride 101 Carbon Dioxide 29 BUN 20 H Creatinine 0.70 Glucose 120 H Calcium 9.1 Liver Function 09/02/24 Range/Units 23:23 Total Bilirubin 0.5 (0.2-1.3) mg/dL AST 118 H (14-36) U/L ALT 60 H (6-35) U/L Alkaline Phosphatase 119 (38-126) U/L Albumin 4.7 (3.5-5.1) g/dL Urine 09/02/24 Range/Units 23:30 Urine Color Yellow (Yellow) Urine Appearance Turbid H (Clear) Urine pH 7.5 (5.0-9.0) Ur Specific [place] 1.026 (1.001-1.035) Urine Protein 1+ H (Negative) mg/dL Urine Glucose (UA) Negative (Negative) mg/dL Imaging CT scan - abdomen: Radiologist's impression: ITS Impressions Abdomen/Pelvis CT 09/03/24 05:48 Impression: Constipation. Distended gallbladder without other CT abnormality. If there is clinical concern for gallbladder pathology, then consider ultrasound for further evaluation. Assessment and Plan Assessment and plan (1) Acute cholecystitis: Code(s): K81.0 - Acute cholecystitis Status: Acute Assessment and Plan: Patient with episodes of epigastric pain that have become more frequent over the past few months. GI workup only significant for cholelithiasis on ultrasound. EGD negative. HIDA scan as outpatient showed delayed filling of the gallbladder at 4 hours with recurrent pain after the test. It appears she likely has acute on chronic calculous cholecystitis. Discussed treatment options with the patient in detail, including nonoperative versus surgical management. We discussed the details of a laparoscopic cholecystectomy under general anesthesia by Dr. Staton. Description of the procedure, risks, benefits, expected outcomes, and expected recovery were discussed with the patient in detail. We discussed the risks of bile leak and bile duct injury, liver/bowel injury, bleeding, and infection. Given her progressive symptoms that are now persistent, she wishes to proceed with surgery. Will keep her NPO and continue IV antibiotics preoperatively. She has been added to the surgery scheduled today. Plan I have discussed the patient's case and plan of care with Dr. Staton.
[2024-09-03] MEDS: LACTATED RINGERS 1,000 ML 30 ML IV CONT (09:30)
--- NOTE | 2024-09-03 09:52 | WPDHPUPDATE1 ---
History and Physical Update Update Date/Time: 09/03/24 09:52 History and Physical has been reviewed, including an updated exam of the patient. There are NO changes in the patient's condition. Risks, benefits, and alternatives have been discussed and questions answered. Patient agrees to proceed with procedure.
--- NOTE | 2024-09-03 10:17 | WPDANESEPPF ---
Anes - Initial Pre Proc Eval Procedure: Operation Date: 09/03/24 11:00 Proposed Procedures p Laparoscopic Cholecystectomy - Cecilia Staton MD Date/Time: 09/03/24 10:17 Surgeon: Cecilia Staton MD Pre Op Diagnosis: Acute cholecystitis Patient Data Age: 29 Gender: F Height: 1.6 m Weight: 60.2 kg Last Vital Signs Temp 36.6 C 09/03/24 06:16 Pulse 81 09/03/24 06:16 Resp 16 09/03/24 06:16 BP 105/67 09/03/24 06:16 Pulse Ox 99 09/03/24 06:16 O2 Del Method Room Air 09/03/24 08:10 Allergies Allergy/AdvReac Type Severity Reaction Status Date / Time No Known Allergies Allergy Verified 09/03/24 05:49 Home Medications ?Medication ?Instructions ?Recorded ?Confirmed ?Type omeprazole 20 mg capsule,delayed 20 mg PO DAILY #30 caps 07/12/24 09/03/24 Rx release polyethylene glycol 3350 17 1 g PO EVERY OTHER DAY 08/02/24 09/03/24 History gram/dose oral powder (Miralax) wheat dextrin 3 gram/3.8 gram oral 1.5 g PO DAILY 09/03/24 09/03/24 History powder (Benefiber Sugar Free (dextrin)) Laboratory Tests 09/02/24 09/02/24 09/03/24 23:23 23:30 00:35 WBC 10.3 H K/mm3 (4.5-10.0) RBC 4.56 M/mm3 (4.2-5.4) Hgb 13.3 g/dL (12.0-15.0) Hct 39.7 % (37.0-47.0) MCV 87.1 fl (80-100) MCH 29.2 pg (26-34) MCHC 33.5 g/dl (32-36) RDW 11.8 % (11.5-14.5) Plt Count 273 k/mm3 (150-375) MPV 9.4 fl (7.4-10.4) Immature Gran % (Auto) 0.4 % (0-0.5) Neut % (Auto) 75.3 H % (45.5-73.1) Lymph % (Auto) 18.3 % (18.3-44.2) [place] % (Auto) 4.6 % (2.6-8.5) Eos % (Auto) 1.1 % (0-4.4) Baso % (Auto) 0.3 % (0.2-1.2) Lymph # (Auto) 1.88 K/mm3 (0.9-3.2) [place] # (Auto) 0.5 K/mm3 (0.1-0.6) Eos # (Auto) 0.1 K/mm3 (0-0.3) Baso # (Auto) 0.0 K/mm3 (0.0-0.1) Abs Immat Gran (auto) 0.04 H K/mm3 (0.00-0.031) Absolute Neuts (auto) 7.7 H K/mm3 (1.3-6.7) Absolute Nucleated RBC 0.000 K/mm3 (0.0-0.012) Nucleated RBC % 0.0 % (0.0-0.2) Sodium 136 L mmol/L (137-145) Potassium 3.6 mmol/L (3.4-5.0) Chloride 101 mmol/L (98-107) Carbon Dioxide 29 mmol/L (22-30) Anion Gap 6 mmol/L (4-12) BUN 20 H mg/dL (7-17) Creatinine 0.70 mg/dL (0.7-1.0) Estim Creat Clear Calc 83 ml/min Estimated GFR > 60 (59 - ) Glucose 120 H mg/dL (65-110) Calcium 9.1 mg/dL (8.4-10.2) Total Bilirubin 0.5 mg/dL (0.2-1.3) AST 118 H U/L (14-36) ALT 60 H U/L (6-35) Alkaline Phosphatase 119 U/L (38-126) Total Protein 8.0 g/dL (6.3-8.2) Albumin 4.7 g/dL (3.5-5.1) Lipase 66 U/L (23-300) Urine Color Yellow (Yellow) Urine Appearance Turbid H (Clear) Urine pH 7.5 (5.0-9.0) Ur Specific [place] 1.026 (1.001-1.035) Urine Protein 1+ H mg/dL (Negative) Urine Glucose (UA) Negative mg/dL (Negative) Urine Ketones Negative mg/dL (Negative) Ur Blood (Man) Negative (Negative) Urine Nitrate Negative (Negative) Urine Bilirubin Negative (Negative) Urine Urobilinogen 1.0 mg/dL (<2.0) Add Ur Microanalysis Reviewed Leukocyte Esterase Rfl Negative XIOMY/UL (Negative) Urine RBC 0-2 /hpf (0-2) Urine WBC 6-10 H /hpf (0-3) Ur Squamous Epith Cells Few /hpf (Few) Amorphous Sediment Few H (None) Urine Bacteria Rare /hpf Urine Casts 6-10 POC Urine HCG, Qual Negative (Negative) Patient hx anesthesia problems: none Family hx anesthesia problems: none Results Review: All pre-operative results and documents have been reviewed as part of the pre-operative evaluation. [facility] Past Medical History Medical History (Updated 09/03/24 @ 10:17 by Alejo Cummins MD) Acute cholecystitis Anxiety Surgical History Surgical History History of Family History Family History Grandparent S/P MAXWELL (total abdominal hysterectomy) Cervical cancer Mother S/P MAXWELL (total abdominal hysterectomy) Cervical cancer Social History Social History Smoking status: Never smoker Alcohol intake: never Substance use: never Substance use type: does not use Do You Feel Safe in your Home?: Yes Lack of Transportation: No Lack of Food: Never True Current Housing: I Have Housing Concerned About Future Housing: No Difficulty Paying Gas/Electric Bills: No Difficulty Paying for Meds: No Currently Unemployed: No Education: Master's Degree or Higher Difficulty w/ Childcare or Family Care: No Living arrangements: with family Spiritual care concerns: No Anes - Eval Final PreProcedure Day of Procedure 09/03/24 10:17 Patient weight: normal Heart: regular rate and rhythm Lungs: clear to auscultation Airway: Mallampati scale class II Neurological: alert and oriented Last oral intake: >/= 8 hours ASA classification: II Emergent: no Anesthetic plan: proceed Anesthesia type and monitoring: general ETT and standard monitoring Results Review: All pre-operative results and documents have been reviewed as part of the pre-operative evaluation. Informed Consent: The patient's anesthetic plan and its attendant risks and benefits were discussed with the patient/family/POA. Questions were solicited and answers provided to the satisfaction of the patient/family/POA.
[2024-09-03] MEDS: BUPIVACAINE/EPINEPHRINE 0.5% 30 ML VIAL INFILTRATE (11:20)
--- NOTE | 2024-09-03 11:53 | P.OP_ITS ---
Procedure Note - Detailed Date of Procedure 09/03/24 Pre-op Diagnosis Acute cholecystitis Post-op Diagnosis Same Procedure Performed Laparoscopic cholecystectomy Surgeon Cecilia Staton MD Anesthesia General Indications 29-year-old female presenting to the emergency department complaining of severe right upper quadrant abdominal pain. Workup, including imaging, significant for acute cholecystitis, cholelithiasis. Findings acute cholecystitis with cholelithiasis Description of Procedure The patient was taken to the operating room placed in the supine position. After adequate induction of general anesthesia, the patient was prepped and draped in normal sterile fashion. A time-out was then performed to verify the patient's identity as well as the procedure being performed. I then made a 5 mm incision in the infraumbilical region. Through this, a Veress needle was placed into the peritoneal cavity and CO2 gas was then insufflated. After adequate pneumoperitoneum was achieved, the Veress needle was removed and a 5 mm optiview trocar was placed through this incision under direct visualization. I then placed the laparoscope through this trocar site and under direct visualization placed a further 12 mm subxiphoid port as well as 2 additional 5 mm ports in the right upper abdomen. The gallbladder was then identified and was noted to be inflamed, distended, and full of gallstones. I was able to place a grasper at the dome of the gallbladder and this was retracted anterior and cephalad up over the liver. A 2nd retractor was then placed at the infundibulum and retracted laterally, this allowed visualization of the triangle of [place]. I then was able to visualize the cystic duct in its entirety from its proximal insertion into the gallbladder, to its distal junction with the common h epatic/common bile duct junction. At this point, I carefully skeletonized the proximal cystic duct with the [place] dissector. I then clipped and transected the proximal cystic duct. Next I visualized the cystic artery. Again the artery was skeletonized, clipped, and transected. I then used the Bovie cautery to take down the peritoneal attachments of the gallbladder off the liver bed. This was somewhat difficult given the amount of inflammation in the posterior space. Once the gallbladder specimen was completely detached, an endo-pouch was placed through the 12 mm port site. I then placed the gallbladder specimen into the Endo pouch and removed the endo-pouch from the 12 mm port site. The specimen will now be sent to pathology for further review. I then copiously irrigated the right upper quadrant. Hemostasis was noted in the liver bed, the clips were noted to be in good position on both the cystic duct stump and the cystic artery stump. No other pathology was noted in the right upper quadrant. I then moved the laparoscope to the subxiphoid port. No iatrogenic injury or other pathology was noted in the lower abdomen. I then closed the 12 mm trocar site under direct visualization using the Teo cone and 0 Vicryl suture. At this point, the abdomen was desufflated and all ports removed. All port sites were then closed with 4.O Monocryl subcuticular sutures. Dermabond was placed on each incision. The patient tolerated the procedure well, was extubated in the operating room postoperative and will be transferred to the recovery room in stable condition Estimated Blood Loss 5 Drains No Packing No Pathology Yes Complications No immediate complications Condition Stable Disposition PACU [facility] Billing Surgery - Charge Forward: Surgery Billing
--- NOTE | 2024-09-04 09:14 | P.DS_ITS ---
DS: Admitting Diagnosis Discharge Date 09/03/24 Admitting Diagnosis Acute cholecystitis, cholelithiasis DS: Discharge Diagnosis Discharge Diagnosis (1) Acute cholecystitis: Code(s): K81.0 - Acute cholecystitis Status: Acute Assessment and Plan: status post cholecystectomy, routine postoperative care, home with p.o. analgesia, follow-up 2 weeks DS: Summary Hospital Course Reason for hospitalization: acute cholecystitis, cholelithiasis Hospital Course: 29-year-old female presenting to the emergency department complaining of severe upper abdominal pain associated with nausea, vomiting, bloating. Workup, including imaging, significant for acute cholecystitis, cholelithiasis. Patient was admitted to the surgical service and upon evaluation the decision was made for urgent cholecystectomy. The patient was and laparoscopic cholecystectomy was performed, please see full operative report for details of that procedure. Postoperatively, the patient did well and was transferred back to the surgical floor. Her pain was well controlled p.o. analgesia and she was up and ambulating without difficulty. She was able to tolerate a bland diet without issue. She will be sent home at this time with p.o. analgesia and follow-up in 2 weeks. Status at Discharge Functional status at discharge: independent ambulation Overall status at discharge: patient is back to baseline Time Spent with Patient Time attestation: Total time spent providing and/or coordinating discharge services: Time spent: Less than 30 minutes Exam Const: General: cooperative, comfortable and no acute distress Resp: Auscultation: clear to auscultation bilaterally Cardio: Rate: regular rate Rhythm: regular rhythm GI: Inspection: normal to inspection, distended and incision GI Palp: Yes abdominal tenderness, Yes Soft to palpation and Yes Tenderness to palpation p resent (GI) DS: Data Data Completed and Pending Pending studies at discharge: Pending at discharge 09/03/24 11:12 Surgical [PTH] Routine Discharge Plan Discharge Attending physician on discharge: Cecilia Ross Consulting providers: Sammi Membreno; Alejo Cummins; Evangelist Kapoor; Callum Lopes Discharging Clinician: Cecilia Ross Anticipated Discharge Date/Time: 09/03/24 15:00 Patient Disposition: Home, Self-Care Activity: may shower and as tolerated Diet: as tolerated Wound Care Instructions: incision open to air Discharge Instructions: DISCHARGE INSTRUCTION SHEET FOR HERNIA, GALLBLADDER AND APPENDIX SURGERIES DR. ROSS PATIENT TO TAKE HOME 1. May shower in 24 hours, no soaking in bath x 2weeks. 2. Call office for: * Wound increasingly painful or bleeding * Vomiting * Fever of greater than 101 degrees 3. If no bowel movement for three days, take 1 oz. (30 ml) Milk of Magnesia or MiraLax 17g 1 to 2 times daily. 4. No heavy lifting > 10-15 pounds x 6 weeks for hernia repairs and 2 weeks for laparoscopic cholecystectomy or appendectomy. 5. No driving for 3 days or while taking narcotic pain medications. 6. Ice to surgical site for 48 hours (30 min on, then 30 min off). 7. Up walking 10-30 minutes three times per day. 8. Resume previous home medications. 9. Follow-up 10-14 days in office for wound check or as previously scheduled. ([phone]) 10. Oral pain medications prescription to be sent to pharmacy. Take Tylenol 500mg every 6 hours and Ibuprofen 600mg every 6 hours for the first 2 days, then as needed. 11. NUTRITION: Start out by drinking fluids and increase your diet as tolerated. If you experience nausea, try dry toast, crackers, and 7-UP. If nausea or vomiting persists, contact your surgeon?s office. 12. Gallbladders-Low Fat Diet for 2 weeks (send care note of low fat diet) 13. Inguinal Hernias-wear scrotal support for 48 hours 14. Abdominal Hernias-if sent home with abdominal binder, wear for the first 2 weeks (may remove to shower or at night to sleep). Revised 09/2020 Patient Instructions: Antibiotic Form, Low Fat Diet (DC), Laparoscopic Cholecystectomy (DC) Patient Language: French Stand Alone Forms: General Discharge Information Follow-up/Referrals: Cecilia Ross MD [Physician] - 2 Weeks Discharge Medications: New hydrocodone-acetaminophen 5-325 mg tablet 1 tablet PO Q6H PRN (Reason: pain) Qty: 20 0RF Continued omeprazole 20 mg capsule,delayed release(DR/EC) 20 mg PO DAILY Qty: 30 2RF Benefiber Sugar Free (dextrin) 3 gram/3.8 gram powder 1.5 g PO DAILY Rx Instructions: mix into at least 4 oz water or juice before administering polyethylene glycol 3350 [Miralax] 17 gram/dose Powder 1 g PO EVERY OTHER DAY Date of admission: 09/03/24 05:22 Primary Care Provider: Amee Jackson Admitting Provider: Cecilia Ross Attending physician on admission: Cecilia Ross Condition: Stable
== END 2024-09-03 16:50 | disposition home or self-care (01) ==
LOC: ANHED 09-03 05:25 → ANH2MED 09-03 05:36
PROVIDERS: Admitting Provider Surgery; Emergency Provider Emergency Medicine; PCP Nurse Practitioner; Visit Provider Surgery
PROC: 0FT44ZZ Resection of Gallbladder, Percutaneous Endoscopic Approach (ICD-10-PCS; CPT 47562; principal; 2024-09-03 11:00)
DX: K80.10 Calculus of gallbladder with chronic cholecystitis without obstruction (principal); Z79.899 Other long term (current) drug therapy
CPT/HCPCS: 47562; 36415; 74177; 80053; 81001; 81025; 83690; 85025; 87086; 88304; 96361; 96365; 96375; 99285; G0378; J0780; J1100; J1171; J2003; J2250; J2405; J2543; J2704; J3010; J7030; J7120; Q9967

== ENCOUNTER 2024-09-04 18:17 | Inpatient (IN) | payer OTHER, SELFPAY ==
--- NOTE | ~2024-09-04 | XR_ITS ---
EXAMINATION: XR ERCP DATE: 09/06/2024 13:00 INDICATION: Elevated liver enzymes and choledocholithiasis. TECHNIQUE: Multiple spot fluoroscopic images of the right upper quadrant were obtained during endosco pic retrograde cholangiopancreatography (ERCP) performed by Dr. Julio Campos. Radiologist was not present for the imaging or procedure. The amount of fluoroscopy time used during this procedure was 4 .7 minutes. COMPARISON: None. FINDINGS: Cholecystectomy clips in the right upper quadrant. There is endoscopic cannulation initially of the m ain pancreatic duct with retrograde contrast injection demonstrating a normal appearing main pancreat ic duct. A stent is subsequently placed in the main pancreatic duct with proximal tip at the level of the neck of the pancreas and distal loop projecting over the duodenum. There is subsequent cannulati on of the common bile duct with retrocardiac contrast injection into the common bile duct which is re lexa mildly dilated to 9 mm. The balloon is seen sweeping the common bile duct presumably for remova l of the uterus the visualized obstructing choledocholithiasis. IMPRESSION: 1. Images demonstrate balloon sweeping of the mildly dilated common bile duct likely for removal of t he previously noted distal choledocholithiasis. Please refer to the ERCP procedure note for additiona l details. 2. Placement of a likely pancreatic duct stent which is in expected position. Reviewed, dictated and finalized at location A. TENDER IMPRESSION: 1. Images demonstrate balloon sweeping of the mildly dilated common bile duct l ikely for removal of the previously noted distal choledocholithiasis. Please re nathen to the ERCP procedure note for additional details. 2. Placement of a likely pancreatic duct stent which is in expected position.
--- NOTE | ~2024-09-04 | MR_ITS ---
EXAMINATION: MR MRCP wo/w con/w 3D wo ind DATE: 09/05/2024 15:42 INDICATION: Elevated liver enzymes. Recent cholecystectomy. TECHNIQUE: Magnetic resonance imaging (MRI) of the abdomen was performed without and with 12 mL Multi elsi intravenous contrast. Sequences included coronal T2-weighted SS-FSE, coronal T2-weighted FS SS- FSE, coronal T2-weighted FS FIESTA, axial T2-weighted FS FIESTA, axial T2-weighted FIESTA, sagittal T 2-weighted SS-FSE, axial T1-weighted dual-echo FSPGR, axial T2-weighted SS-FSE, axial T1-weighted LAV A, axial T2-weighted STIR FSE. Thick-slab T2-weighted FRFSE-XL images were obtained for magnetic reso nance cholangiopancreatography (MRCP). Rotating maximum intensity projection 3-D reconstructions of t he volumetric data were created by the technologist. Postcontrast sequences included a time course of axial T1-weighted LAVA. COMPARISON: CT dated 09/04/2024 FINDINGS: ABDOMEN MRI: Heart size is normal. No pericardial or pleural effusion. Gallbladder is surgically abse nt. There is mild intra and extra hepatic biliary ductal dilation. There is also mild periportal jane a as well as some likely postoperative edema at the subha hepatis. Spleen, pancreas, bilateral adrena l glands and kidneys are normal. Visualized portions of bowels are unremarkable. There is a small lourdes unt of likely residual postoperative gas and fluid loculated within the anterolateral right right abd ominal wall. Unchanged mild rectus diastases. No pathologically enlarged abdominal lymphadenopathy. B ones are unremarkable with normal marrow signal throughout. ABDOMEN MRCP: The common bile duct is dilated to 10 mm. There are couple T2-3 millimeters low signal intensity fill ing defects in the distal common bile duct which is seen both on the MRCP images as well as the sagit kathleen T2-weighted images suggesting retained an obstructing gallstones. IMPRESSION: 1. Mild intra and extra hepatic biliary ductal dilation post recent cholecystectomy likely secondary to obstructing choledocholithiasis with a couple 2-3 mm filling defects in the distal common bile brigida t. Reviewed, dictated and finalized at location A. IC CLEANER IMPRESSION: 1. Mild intra and extra hepatic biliary ductal dilation post recent cholecystec ayden likely secondary to obstructing choledocholithiasis with a couple 2-3 mm f illing defects in the distal common bile duct.
--- NOTE | ~2024-09-04 | NM_ITS ---
EXAMINATION: NM hepatobiliary wo pharm DATE: 09/05/2024 15:26 INDICATION: Epigastric abdominal pain. COMPARISON: CT abdomen and pelvis 09/04/2024, hepatobiliary scintigraphy 09/02/24 TECHNIQUE: 5 mCi Tc-99m mebrofenin (Choletec) was administered intravenously. Scintigraphic images o f the abdomen were obtained for one hour. Delayed images were obtained at 3 hours. FINDINGS: There is delayed clearance of radiotracer from the blood pool. There is homogeneous tracer uptake by the liver. At 3 hours, all of the activity is in the liver, with no activity visible in the biliary tree or bowel. IMPRESSION: 1. Retention of activity in the liver, which may be seen with severe hepatocellular dysfunction or c ommon duct obstruction. 2. Insufficient activity in the biliary tree to assess for bile leak. Reviewed, dictated and finalized at location A. TROLOG OPERATOR IMPRESSION: 1. Retention of activity in the liver, which may be seen with severe hepatocel lular dysfunction or common duct obstruction. 2. Insufficient activity in the biliary tree to assess for bile leak.
--- NOTE | ~2024-09-04 | CT_ITS ---
EXAMINATION: CT abdomen pelvis w con DATE: 09/04/2024 19:54 INDICATION: Epigastric abdominal pain. Vomiting. Jaundice. TECHNIQUE: Computed tomography (CT) of the abdomen and pelvis was performed with 100 mL Omnipaque 350 intravenous contrast. Automated exposure control and iterative reconstruction technique were employe d. The dose-length product was 329.07 mGy-cm. COMPARISON: CT abdomen and pelvis 09/03/2024 FINDINGS: The visualized portions of the lung bases demonstrate mild atelectasis. No pleural effusion . The heart size is normal. No pericardial effusion. The liver is normal. There is free intraperitone al gas, consistent with recent surgery. There are surgical clips from cholecystectomy. The spleen, pa ncreas, adrenal glands, and kidneys are normal. There is a small volume of pelvic ascites. There are no dilated loops of bowel. There is diastases of the rectus abdominis muscles. The appendix is normal . There are no pathologically enlarged lymph nodes. There is gas and fat stranding in anterior abdomi nal wall at surgical trochar sites. There is mild thoracic and lumbar spondylosis. IMPRESSION: 1. Small volume of pelvic ascites, likely physiologic. 2. Surgical changes of recent cholecystectomy. Reviewed, dictated and finalized at location A. CONTROL CHEMICAL TECHNICIAN
[2024-09-04 18:21] VITALS: BP 124/94; PULSE 71; RESP 20; TEMP 36.4; O2SAT 100
--- NOTE | 2024-09-04 18:52 | ED_ITS ---
HPI - Abdominal Pain General Chief Complaint: Abdominal Pain Stated Complaint: RUQ abd. pain, vomiting, nausea Time Seen by Provider: 09/04/24 18:30 Source: patient Mode of arrival: ambulatory Limitations: no limitations History of Present Illness HPI narrative: This is a 29-year-old female that presents to the emergency department for persistent nausea and vomiting. Reports she had a cholecystectomy yesterday. She was discharged this morning. She has had nausea and vomiting all day. She also reports she feels like she looks yellow today. She has right upper quadrant pain that radiates up into her shoulder. Denies fevers. Related Data Home Medications ?Medication ?Instructions ?Recorded ?Confirmed ?Last Taken ?Type polyethylene glycol 3350 17 1 g PO EVERY OTHER DAY 08/02/24 09/03/24 08/20/24 History gram/dose oral powder (Miralax) wheat dextrin 3 gram/3.8 gram oral 1.5 g PO DAILY 09/03/24 09/03/24 Unknown History powder (Benefiber Sugar Free (dextrin)) Allergies Allergy/AdvReac Type Severity Reaction Status Date / Time No Known Allergies Allergy Verified 09/04/24 19:01 Review of Systems 2 Review of Systems: CONSTITUTIONAL: Denies fever GASTROINTESTINAL: Reports abdominal pain, nausea, vomiting GENITOURINARY: Denies dysuria All systems reviewed & are unremarkable except as noted in HPI and below PMFSH Past Medical History Medical History (Updated 09/04/24 @ 21:32 by Maricarmen Schultz PA-C) Acute cholecystitis Anxiety Surgical History Surgical History History of Family History Family History Grandparent S/P MAXWELL (total abdominal hysterectomy) Cervical cancer Mother S/P MAXWELL (total abdominal hysterectomy) Cervical cancer Social History Social History Smoking status: Never smoker Alcohol intake: never Substance use: never Substance use type: does not use Do You Feel Safe in your Home?: Yes Lack of Transportation: No Lack of Food: Never True Current Housing: I Have Housing Concerned About Future Housing: No Difficulty Paying Gas/Electric Bills: No Difficulty Paying for Meds: No Currently Unemployed: No Education: Master's Degree or Higher Difficulty w/ Childcare or Family Care: No Living arrangements: with family Spiritual care concerns: No Exam 2 Narrative: GENERAL: Well-appearing, well-nourished, and in no acute distress. HEAD: Normocephalic, atraumatic. EYES: EOMI. ENT: Nares clear, no rhinorrhea or epistaxis. Mucous membranes moist. CHEST: Clear to auscultation. No respiratory distress. No wheezes rales or rhonchi HEART: Regular rate and rhythm. No murmur heard. Normal peripheral pulses. ABDOMEN: Soft, nondistended, normal active bowel sounds. Incisions are clean, dry and intact. Tender to palpation throughout the abdomen, without guarding EXTREMITIES: Normal range of motion. No edema. SKIN: Warm, dry, no rash. NEURO: No focal deficits. Alert and oriented x3. PSYCH: Normal mood and affect Course Course Emergency Course: patient and family updated on workup and need for admission Consultations Consultation #1: Spoke with general surgery, Dr. Boothe, about patient and workup. Would like patient to be admitted with NPO diet except ice chips, start Rocephin and PPI, admit to Dr. Staton Date: 09/04/24 Vital Signs Vital signs: Vital Signs Temperature 97.6 F 09/04/24 18:21 Pulse Rate 71 09/04/24 18:21 Respiratory Rate 20 09/04/24 18:21 Blood Pressure 124/94 H 09/04/24 18:21 Pulse Oximetry 100 09/04/24 18:21 Oxygen Delivery Room Air 09/04/24 18:21 Temperature 97.6 F 09/04/24 18:21 Pulse Rate 71 09/04/24 18:21 Respiratory Rate 20 09/04/24 18:21 Blood Pressure 124/94 H 09/04/24 18:21 Pulse Oximetry 100 09/04/24 18:21 Oxygen Delivery Room Air 09/04/24 18:21 MDM - Abdominal Pain MDM Narrative Medical decision making narrative: Patient presents the emergency department for continued right upper quadrant pain, nausea and vomiting after cholecystectomy yesterday. She is afebrile and nontoxic appearing. Cbc without leukocytosis. Metabolic panel with mild hypokalemia, also transaminitis and hyperbilirubinemia. Lipase is normal. Urine without evidence of infection. test negative. CT abdomen and pelvis shows small volume of pelvic ascites, likely physiologic. Surgical changes of recent cholecystectomy. Patient and family updated on workup and recommendation for admission. Spoke with general surgery, Dr. Boothe, about patient and workup. Would like patient to be admitted with NPO diet except ice chips, start Rocephin and PPI, admit to Dr. Staton Differential Diagnosis Differential diagnosis: Likely small bowel obstruction and other (Bile duct injury, bile leak, common bile duct stone) Lab Data Attestation: I reviewed the patient's lab results. 09/04/24 19:04 09/04/24 19:03 Labs: Lab Results 09/04/24 09/04/24 09/04/24 Range/Units 19:01 19:03 19:04 WBC 4.8 (4.5-10.0) K/mm3 RBC 4.40 (4.2-5.4) M/mm3 Hgb 12.8 (12.0-15.0) g/dL Hct 39.1 (37.0-47.0) % MCV 88.9 (80-100) fl MCH 29.1 (26-34) pg MCHC 32.7 (32-36) g/dl RDW 11.9 (11.5-14.5) % Plt Count 231 (150-375) k/mm3 MPV 9.5 (7.4-10.4) fl Immature Gran % (Auto) 0.0 (0-0.5) % Neut % (Auto) 64.3 (45.5-73.1) % Lymph % (Auto) 21.2 (18.3-44.2) % Stokes % (Auto) 10.9 H (2.6-8.5) % Eos % (Auto) 3.2 (0-4.4) % Baso % (Auto) 0.4 (0.2-1.2) % Lymph # (Auto) 1.01 (0.9-3.2) K/mm3 Stokes # (Auto) 0.5 (0.1-0.6) K/mm3 Eos # (Auto) 0.2 (0-0.3) K/mm3 Baso # (Auto) 0.0 (0.0-0.1) K/mm3 Abs Immat Gran (auto) 0.00 (0.00-0.031) K/mm3 Absolute Neuts (auto) 3.1 (1.3-6.7) K/mm3 Absolute Nucleated RBC 0.000 (0.0-0.012) K/mm3 Nucleated RBC % 0.0 (0.0-0.2) % Sodium 137 (137-145) mmol/L Potassium 3.3 L (3.4-5.0) mmol/L Chloride 102 (98-107) mmol/L Carbon Dioxide 28 (22-30) mmol/L Anion Gap 7 (4-12) mmol/L BUN 9 D (7-17) mg/dL Creatinine 0.60 L (0.7-1.0) mg/dL Estim Creat Clear Calc 96 ml/min Estimated GFR > 60 (59 - ) Glucose 117 H (65-110) mg/dL Calcium 9.0 (8.4-10.2) mg/dL Total Bilirubin 4.0 H (0.2-1.3) mg/dL AST 361 H (14-36) U/L ALT 708 H (6-35) U/L Alkaline Phosphatase 202 H (38-126) U/L Total Protein 7.0 (6.3-8.2) g/dL Albumin 4.3 (3.5-5.1) g/dL Lipase 48 (23-300) U/L Urine Color Dark yellow (Yellow) Urine Appearance Clear (Clear) Urine pH 7.0 (5.0-9.0) Ur Specific [place] 1.007 (1.001-1.035) Urine Protein Negative (Negative) mg/dL Urine Glucose (UA) Negative (Negative) mg/dL Urine Ketones Negative (Negative) mg/dL Ur Blood (Man) Negative (Negative) Urine Nitrate Negative (Negative) Urine Bilirubin 2+ H (Negative) Urine Urobilinogen 1.0 (<2.0) mg/dL Leukocyte Esterase Rfl Negative (Negative) XIOMY/UL POC Urine HCG, Qual Negative (Negative) Influenza A (RT-PCR) Negative (Negative) Influenza B (RT-PCR) Negative (Negative) RSV (RT-PCR) Negative (Negative) SARS-CoV-2 RNA (RT-PCR) Negative (Negative) Imaging Data Radiologist's impression: ITS Impressions Abdomen/Pelvis CT 09/04/24 19:55 IMPRESSION: 1. Small volume of pelvic ascites, likely physiologic. 2. Surgical changes of recent cholecystectomy. Critical Care Time Critical Care Time Critical Care Time: No Discharge Plan Discharge Clinical Impression: Transaminitis, Hyperbilirubinemia, Hypokalemia Patient Disposition: Still a Patient Condition: Stable Patient Language: [place] Prescriptions: No Action omeprazole 20 mg capsule,delayed release(DR/EC) 20 mg PO DAILY Qty: 30 2RF Benefiber Sugar Free (dextrin) 3 gram/3.8 gram powder 1.5 g PO DAILY Rx Instructions: mix into at least 4 oz water or juice before administering hydrocodone-acetaminophen 5-325 mg tablet 1 tablet PO Q6H PRN (Reason: pain) Qty: 20 0RF polyethylene glycol 3350 [Miralax] 17 gram/dose Powder 1 g PO EVERY OTHER DAY Follow-up/Referrals: Amee Jackson APRN [Primary Care Provider] -
[2024-09-04 19:03] LABS: BEDSIDEPREGUCG Negative (Negative)
[2024-09-04] MEDS: ONDANSETRON INJ 4 MG/2 ML VIAL IV PUSH (19:04)
[2024-09-04] MEDS: SODIUM CHLORIDE 0.9% IV 1,000 ML 999 ML IV CONT (19:04)
[2024-09-04 19:08] LABS: Basophils Percent Auto 0.4 % (0.2-1.2); Eosinophils Absolute Auto 0.2 K/mm3 (0-0.3); Eosinophils Percent Auto 3.2 % (0-4.4); Hematocrit 39.1 % (37.0-47.0); Hemoglobin 12.8 g/dL (12.0-15.0); Lymphocytes Absolute Auto 1.01 K/mm3 (0.9-3.2); Lymphocytes Percent Auto 21.2 % (18.3-44.2); Mean Corpuscular HGB Conc 32.7 g/dl (32-36); Mean Corpuscular Hemoglobin 29.1 pg (26-34); Mean Corpuscular Volume 88.9 fl (80-100); Mean Platelet Volume 9.5 fl (7.4-10.4); Monocytes Absolute Auto 0.5 K/mm3 (0.1-0.6); Monocytes Percent Auto 10.9 % (2.6-8.5); Neutrophils Absolute Auto 3.1 K/mm3 (1.3-6.7); Neutrophils Percent Auto 64.3 % (45.5-73.1); Platelet Count Result 231 k/mm3 (150-375); Red Cell Distribution Width 11.9 % (11.5-14.5); White Blood Count 4.8 K/mm3 (4.5-10.0)
[2024-09-04 19:12] LABS: Add Urine Microscopic? YES; Appearance Urine Clear (Clear); Bilirubin Urine 2+ (Negative); Blood Urine Negative (Negative); Color Urine Dark Yellow (Yellow); Glucose Urine UA Negative (Negative); Ketones Urine Negative (Negative); Leukocyte Esterase Ur Negative LEU/UL (Negative); Nitrate Urine Negative (Negative); Protein Urine Negative (Negative); Specific Grav Ur 1.007 (1.001-1.035)
[2024-09-04 19:19] LABS: Alanine Aminotransferase 708 U/L (6-35); Albumin Level 4.3 g/dL (3.5-5.1); Alkaline Phosphatase 202 U/L (38-126); Anion Gap 7 mmol/L (4-12); Aspartate Amino Transferase 361 U/L (14-36); Blood Urea Nitrogen 9 mg/dL (7-17); Carbon Dioxide 28 mmol/L (22-30); Chloride 102 mmol/L (98-107); Estimated CRCL calculation 96 ml/min; Estimated Glomerular Filt Rate > 60; Glucose 117 mg/dL (65-110); Lipase 48 U/L (23-300); Potassium 3.3 mmol/L (3.4-5.0); Sodium 137 mmol/L (137-145)
[2024-09-04 19:44] LABS: Influenza A QL RT-PCR Negative (Negative); Influenza B QL RT-PCR Negative (Negative); RSV RNA, RT-PCR Negative (Negative); SARS-CoV-2 RNA PCR Negative (Negative)
[2024-09-04] MEDS: METOCLOPRAMIDE HCL INJ 10 MG/2 ML VIAL IV PUSH (21:04)
[2024-09-04] MEDS: KETOROLAC 15 MG/ML VIAL (*BKC) IV PUSH (21:06)
[2024-09-04] MEDS: diphenhydrAMINE HCl INJ 50 MG/ML VIAL 25 MG IV PUSH (21:08)
[2024-09-04 21:58] VITALS: BP 118/80; PULSE 66; RESP 15; O2SAT 100
[2024-09-04 22:15] VITALS: BMI 24.0
--- NOTE | 2024-09-04 22:23 | ADMGEN ---
This patient, Elizabeth Cole, was admitted to [facility] Surg Room 313-01. Patient/family oriented to hospital policies and general routines including ID bracelet, bed and alarms, visiting hours, pain management, procedures, bathroom and other care routines, personal items, smoking policy, room service/diet, and visiting hours. Information on how to activate the Rapid Response Team has been discussed. Patient/Family are encouraged to report perceived risks to care and to ask questions if they do not understand what they are told or what they should do.
[2024-09-04 22:33] VITALS: BP 118/80; PULSE 66; RESP 15; O2SAT 100
[2024-09-04 22:38] LABS: Magnesium 2.1 mg/dL (1.6-2.3)
[2024-09-04 22:39] VITALS: BP 104/61; PULSE 67; RESP 14; TEMP 36.2; O2SAT 99
[2024-09-04] MEDS: SODIUM CHLORIDE 0.9% IV 1,000 ML 125 ML IV CONT (22:44)
[2024-09-04] MEDS: MORPHINE SULFATE (*CRX) 4 MG/ML INJ IV PUSH (22:46)
[2024-09-04] MEDS: POTASSIUM CHLORIDE INJ 40 MEQ in SODIUM CHLORIDE 0.9% IV 500 ML 130 MEQ IVPB (23:09)
[2024-09-05] MEDS: MORPHINE SULFATE (*CRX) 4 MG/ML INJ IV PUSH ×5 (03:13→20:16)
[2024-09-05 04:00] VITALS: BP 110/65; PULSE 67; RESP 14; TEMP 36.1; O2SAT 98
[2024-09-05] MEDS: SODIUM CHLORIDE 0.9% IV 1,000 ML 125 ML IV CONT ×2 (06:28→20:21)
[2024-09-05 07:16] LABS: Basophils Percent Auto 0.7 % (0.2-1.2); Eosinophils Absolute Auto 0.1 K/mm3 (0-0.3); Eosinophils Percent Auto 2.5 % (0-4.4); Hematocrit 35.5 % (37.0-47.0); Hemoglobin 11.4 g/dL (12.0-15.0); Immature Granulocyte Absolute 0.01 K/mm3 (0.00-0.031); Immature Granulocyte Percent A 0.2 % (0-0.5); Lymphocytes Percent Auto 27.6 % (18.3-44.2); Mean Corpuscular HGB Conc 32.1 g/dl (32-36); Mean Corpuscular Hemoglobin 28.9 pg (26-34); Mean Corpuscular Volume 90.1 fl (80-100); Monocytes Absolute Auto 0.5 K/mm3 (0.1-0.6); Monocytes Percent Auto 10.8 % (2.6-8.5); Neutrophils Absolute Auto 2.5 K/mm3 (1.3-6.7); Neutrophils Percent Auto 58.2 % (45.5-73.1); Platelet Count Result 212 k/mm3 (150-375); Red Blood Count 3.94 M/mm3 (4.2-5.4); Red Cell Distribution Width 11.9 % (11.5-14.5); White Blood Count 4.4 K/mm3 (4.5-10.0)
[2024-09-05 07:24] LABS: Alanine Aminotransferase 513 U/L (6-35); Albumin Level 3.7 g/dL (3.5-5.1); Alkaline Phosphatase 180 U/L (38-126); Anion Gap 4 mmol/L (4-12); Aspartate Amino Transferase 181 U/L (14-36); Bilirubin,Total 3.9 mg/dL (0.2-1.3); Blood Urea Nitrogen 4 mg/dL (7-17); Calcium 8.4 mg/dL (8.4-10.2); Carbon Dioxide 26 mmol/L (22-30); Chloride 107 mmol/L (98-107); Estimated CRCL calculation 96 ml/min; Estimated Glomerular Filt Rate > 60; Glucose 82 mg/dL (65-110); Potassium 3.8 mmol/L (3.4-5.0); Sodium 137 mmol/L (137-145)
[2024-09-05] MEDS: ONDANSETRON INJ 4 MG/2 ML VIAL IV PUSH ×2 (07:59→23:39)
[2024-09-05 08:00] VITALS: BP 122/77; PULSE 77; RESP 16; TEMP 36.3; O2SAT 98
[2024-09-05] MEDS: PANTOPRAZOLE SODIUM IV 40 MG VIAL IV PUSH (08:00)
--- NOTE | 2024-09-05 10:04 | PM.IMHP ---
H&P: HPI History of Present Illness Date/Time: 09/05/24 10:04 Chief Complaint: Abdominal pain, nausea, vomiting Narrative: The the patient is a 29-year-old female re-presented to the emergency department status post laparoscopic cholecystectomy complaining of severe right-sided abdominal pain, intractable nausea and vomiting. The patient also notes yellowing of her skin and eyes, as well as neon yellow urine. The patient underwent laparoscopic cholecystectomy on 09/03 for cholecystitis, cholelithiasis. Workup in the emergency department, including imaging, is significant for elevated bilirubin and LFTs. She is now admitted to the surgical service for further evaluation and treatment. Review of Systems Review of Systems: All systems reviewed & are unremarkable except as noted in HPI and below PMFSH Past Medical History Medical History Acute cholecystitis Anxiety Surgical History Surgical History History of Family History Family History Grandparent S/P MAXWELL (total abdominal hysterectomy) Cervical cancer Mother S/P MAXWELL (total abdominal hysterectomy) Cervical cancer Social History Social History Smoking status: Never smoker Alcohol intake: current Drinks per week: 1 Substance use: never Substance use type: does not use Do You Feel Safe in your Home?: Yes Lack of Transportation: No Lack of Food: Never True Current Housing: I Have Housing Concerned About Future Housing: No Difficulty Paying Gas/Electric Bills: No Difficulty Paying for Meds: No Currently Unemployed: No Education: Master's Degree or Higher Difficulty w/ Childcare or Family Care: No Living arrangements: with family Spiritual care concerns: No Meds Home Medications and Allergies Home Medications ?Medication ?Instructions ?Recorded ?Confirmed ?Type polyethylene glycol 3350 17 1 g PO EVERY OTHER DAY 08/02/24 09/04/24 History gram/dose oral powder (Miralax) hydrocodone 5 mg-acetaminophen 325 1 tablet PO Q6H PRN pain #20 tabs 09/03/24 09/04/24 Rx mg tablet wheat dextrin 3 gram/3.8 gram oral 1.5 g PO DAILY 09/03/24 09/04/24 History powder (Benefiber Sugar Free (dextrin)) omeprazole 20 mg capsule,delayed 20 mg PO QHS 09/04/24 09/04/24 History release Allergies Allergy/AdvReac Type Severity Reaction Status Date / Time No Known Allergies Allergy Verified 09/04/24 19:01 Vital Signs Vital Signs - 24 hr 09/04/24 18:21 09/04/24 21:58 09/04/24 22:30 Temperature 36.4 C Pulse Rate 71 66 Respiratory Rate 20 15 Blood Pressure 124/94 H 118/80 Pulse Oximetry 100 100 Oxygen Delivery Room Air Room Air 09/04/24 22:33 09/04/24 22:39 09/05/24 04:00 Temperature 36.2 C L 36.1 C L Pulse Rate 66 67 67 Respiratory Rate 15 14 14 Blood Pressure 118/80 104/61 110/65 Pulse Oximetry 100 99 98 Oxygen Delivery 09/05/24 08:00 Temperature 36.3 C L Pulse Rate 77 Respiratory Rate 16 Blood Pressure 122/77 Pulse Oximetry 98 Oxygen Delivery Exam Const: General: cooperative, comfortable and no acute distress HENMT: Head: normal to inspection, normocephalic and atraumatic Eyes: General: appearance normal, both eyes and all related structures Other: Positive scleral icterus Neck: Neck: normal visual inspection, full ROM and no lymphadenopathy Resp: Auscultation: clear to auscultation bilaterally Cardio: Rate: regular rate Rhythm: regular rhythm GI: Inspection: normal to inspection, distended and incision GI Palp: Yes abdominal tenderness, Yes Soft to palpation, Yes Tenderness to palpation present (GI), No Guarding due to palpation present (GI) and No Rigid due to palpation Skin: General skin exam: no rashes or lesions noted and jaundice Neuro: General: patient oriented x3 and CN's II-XI intact bilaterally Extrem: General: normal to inspection and full ROM H&P: Results Labs Labs: Short CBC 09/04/24 09/05/24 Range/Units 19:04 07:03 WBC 4.8 4.4 L (4.5-10.0) K/mm3 Hgb 12.8 11.4 L (12.0-15.0) g/dL Hct 39.1 35.5 L (37.0-47.0) % Plt Count 231 212 (150-375) k/mm3 [facility] 09/04/24 09/05/24 19:03 07:03 Sodium 137 137 Potassium 3.3 L 3.8 Chloride 102 107 Carbon Dioxide 28 26 BUN 9 D 4 L D Creatinine 0.60 L 0.60 L Glucose 117 H 82 Calcium 9.0 8.4 Liver Function 09/04/24 09/05/24 Range/Units 19:03 07:03 Total Bilirubin 4.0 H 3.9 H (0.2-1.3) mg/dL AST 361 H 181 H (14-36) U/L ALT 708 H 513 H (6-35) U/L Alkaline Phosphatase 202 H 180 H (38-126) U/L Albumin 4.3 3.7 (3.5-5.1) g/dL Urine 09/04/24 Range/Units 19:03 Urine Color Dark yellow (Yellow) Urine Appearance Clear (Clear) Urine pH 7.0 (5.0-9.0) Ur Specific [place] 1.007 (1.001-1.035) Urine Protein Negative (Negative) mg/dL Urine Glucose (UA) Negative (Negative) mg/dL Imaging CT scan - abdomen: My impression: postoperative changes of recent cholecystectomy Assessment and Plan Assessment and plan (1) Hyperbilirubinemia: Code(s): E80.6 - Other disorders of bilirubin metabolism Status: Acute Assessment and Plan: will get HIDA scan for further, will also get GI consultation, continue analgesia and IV hydration for now
[2024-09-05 12:00] VITALS: BP 112/72; PULSE 81; RESP 14; TEMP 36.6; O2SAT 97
[2024-09-05 16:00] VITALS: BP 114/76; PULSE 75; RESP 16; TEMP 36.4; O2SAT 97
--- NOTE | 2024-09-05 16:27 | P.CONGI_ITS ---
Assessment and Plan Assessment and plan (1) Epigastric abdominal pain: Code(s): R10.13 - Epigastric pain Status: Acute Assessment and Plan: here with jaundice and more abdominal pain with nausea and vomiting mrcp reviewed with filling defects in bile duct (2) Choledocholithiasis: Code(s): K80.50 - Calculus of bile duct without cholangitis or cholecystitis without obstruction Status: Acute Assessment and Plan: this will explain her symptoms ercp tomorrow, I talked to her about risk vs benefit including pancreatitis will receive indomethacin supp and fluids (3) Transaminitis: Code(s): R74.01 - Elevation of levels of liver transaminase levels Status: Acute Assessment and Plan: will trend GI Consult Note Consult date/time: 09/05/24 16:27 Reason for consult: ruq and jaundice after lap stacie HPI: Elizabeth Cole is a 29 year old female who was just discharge from the hospital after had lap stacie (admitted for ruq pain and found cholecystitis). She is here with severe right-sided abdominal pain, intractable nausea and vomiting. Also noted dark urine and yellowing of her skin and eyes. Workup in the emergency department, including imaging, is significant for elevated bilirubin 4 (normal before surgery). HIDA scan no bile leak and MRCP just completed showed filling defects consistent with small stones. Review of Systems 2 Constitutional: Constitutional: Denies headache(s) and Denies weakness Eyes: Eyes: Denies blurry vision ENT: Reports Normal hearing present, Denies headache(s) and Denies neck pain Cardiovascular: Cardiovascular: Denies chest pain and Denies dyspnea Respiratory: Respiratory: Denies dyspnea Gastrointestinal: Gastrointestinal: Reports no additional gastrointestinal complaints Genitourinary: Genitourinary: Denies dysuria Musculoskeletal: Musculoskeletal: Denies neck pain Integumentary/Breasts: Skin/Breast: Denies dry skin Neurologic: Reports Normal hearing present, Denies headache(s) and Denies weakness Psychiatric: Psychiatric: Denies anxiety Endocrine: Endocrine: Denies change in body appearance Hematologic/Lymphatic: Hematologic/Lymphatic: Denies easy bleeding Allergic/Immunologic: Allergic/Immunologic: Denies urticaria PMFSH Past Medical History Medical History (Updated 09/05/24 @ 17:30 by Mack Lopez MD) Choledocholithiasis Acute cholecystitis Anxiety Surgical History Surgical History History of Family History Family History Grandparent S/P MAXWELL (total abdominal hysterectomy) Cervical cancer Mother S/P MAXWELL (total abdominal hysterectomy) Cervical cancer Social History Social History Smoking status: Never smoker Alcohol intake: current Drinks per week: 1 Substance use: never Substance use type: does not use Do You Feel Safe in your Home?: Yes Lack of Transportation: No Lack of Food: Never True Current Housing: I Have Housing Concerned About Future Housing: No Difficulty Paying Gas/Electric Bills: No Difficulty Paying for Meds: No Currently Unemployed: No Education: Master's Degree or Higher Difficulty w/ Childcare or Family Care: No Living arrangements: with family Spiritual care concerns: No Meds Home Medications and Allergies Home Medications ?Medication ?Instructions ?Recorded ?Confirmed ?Type polyethylene glycol 3350 17 1 g PO EVERY OTHER DAY 08/02/24 09/04/24 History gram/dose oral powder (Miralax) hydrocodone 5 mg-acetaminophen 325 1 tablet PO Q6H PRN pain #20 tabs 09/03/24 09/04/24 Rx mg tablet wheat dextrin 3 gram/3.8 gram oral 1.5 g PO DAILY 09/03/24 09/04/24 History powder (Benefiber Sugar Free (dextrin)) omeprazole 20 mg capsule,delayed 20 mg PO QHS 09/04/24 09/04/24 History release Allergies Allergy/AdvReac Type Severity Reaction Status Date / Time No Known Allergies Allergy Verified 09/04/24 19:01 Vital Signs Vital Signs - 24 hr 09/04/24 18:21 09/04/24 21:58 09/04/24 22:30 Temperature 97.6 F Pulse Rate 71 66 Respiratory Rate 20 15 Blood Pressure 124/94 H 118/80 Pulse Oximetry 100 100 Oxygen Delivery Room Air Room Air 09/04/24 22:33 09/04/24 22:39 09/05/24 04:00 Temperature 97.2 F L 97.0 F L Pulse Rate 66 67 67 Respiratory Rate 15 14 14 Blood Pressure 118/80 104/61 110/65 Pulse Oximetry 100 99 98 Oxygen Delivery 09/05/24 08:00 09/05/24 08:00 09/05/24 12:00 Temperature 97.4 F L 97.9 F Pulse Rate 77 81 Respiratory Rate 16 14 Blood Pressure 122/77 112/72 Pulse Oximetry 98 97 Oxygen Delivery Room Air Exam 2 Const: General: cooperative, comfortable and no acute distress HENMT: Head: normal to inspection, normocephalic and atraumatic Eyes: General: appearance normal, both eyes and all related structures O ther: Positive scleral icterus Neck: Neck: normal visual inspection, full ROM and no lymphadenopathy Resp: Auscultation: clear to auscultation bilaterally Cardio: Rate: regular rate Rhythm: regular rhythm GI: Inspection: normal to inspection, distended and incision GI Palp: Yes abdominal tenderness, Yes Soft to palpation, Yes Tenderness to palpation present (GI), No Guarding due to palpation present (GI) and No Rigid due to palpation Skin: General skin exam: no rashes or lesions noted and jaundice Neuro: General: patient oriented x3 and CN's II-XI intact bilaterally Motor exam (neuro): 5/5 motor strength present throughout Extrem: General: normal to inspection and full ROM Psych: Mental Status: mental status grossly normal Results Labs 09/05/24 07:03 09/05/24 07:03 Labs: Short CBC 09/04/24 09/05/24 Range/Units 19:04 07:03 WBC 4.8 4.4 L (4.5-10.0) K/mm3 Hgb 12.8 11.4 L (12.0-15.0) g/dL Hct 39.1 35.5 L (37.0-47.0) % Plt Count 231 212 (150-375) k/mm3 [facility] 09/04/24 09/05/24 19:03 07:03 Sodium 137 137 Potassium 3.3 L 3.8 Chloride 102 107 Carbon Dioxide 28 26 BUN 9 D 4 L D Creatinine 0.60 L 0.60 L Glucose 117 H 82 Calcium 9.0 8.4 Liver Function 09/04/24 09/05/24 Range/Units 19:03 07:03 Total Bilirubin 4.0 H 3.9 H (0.2-1.3) mg/dL AST 361 H 181 H (14-36) U/L ALT 708 H 513 H (6-35) U/L Alkaline Phosphatase 202 H 180 H (38-126) U/L Albumin 4.3 3.7 (3.5-5.1) g/dL Urine 09/04/24 Range/Units 19:03 Urine Color Dark yellow (Yellow) Urine Appearance Clear (Clear) Urine pH 7.0 (5.0-9.0) Ur Specific [place] 1.007 (1.001-1.035) Urine Protein Negative (Negative) mg/dL Urine Glucose (UA) Negative (Negative) mg/dL
[2024-09-05 20:00] VITALS: BP 130/91; PULSE 78; RESP 16; TEMP 36.5; O2SAT 100
[2024-09-06] VITALS (16 sets, daily range): BP systolic 99–127; BP diastolic 57–88; PULSE 68–85; RESP 12–24; TEMP 36.1–37.7; O2SAT 96–100
[2024-09-06] MEDS: PROMETHAZINE HCL 25 MG/ML AMPUL 12.5 MG IV PUSH (02:56)
[2024-09-06] MEDS: MORPHINE SULFATE (*CRX) 4 MG/ML INJ IV PUSH ×2 (02:56→08:12)
[2024-09-06] MEDS: SODIUM CHLORIDE 0.9% IV 1,000 ML 125 ML IV CONT (05:48)
[2024-09-06] MEDS: PANTOPRAZOLE SODIUM IV 40 MG VIAL IV PUSH (08:13)
[2024-09-06] MEDS: ONDANSETRON INJ 4 MG/2 ML VIAL IV PUSH (08:13)
--- NOTE | 2024-09-06 10:42 | WPDANESEPPF ---
Anes - Initial Pre Proc Eval Procedure: Operation Date: 09/06/24 15:00 Proposed Procedures p Endoscopic Retro Cholangiopancreatogram - Mack Lopez MD Date/Time: 09/06/24 10:42 Surgeon: Cecilia Staton MD Pre Op Diagnosis: Hyperbilirubinemia, Transaminitis Patient Data Age: 29 Gender: F Height: 1.6 m Weight: 61.4 kg Last Vital Signs Temp 36.9 C 09/06/24 04:00 Pulse 71 09/06/24 04:00 Resp 14 09/06/24 04:00 BP 99/60 L 09/06/24 04:00 Pulse Ox 96 09/06/24 04:00 O2 Del Method Room Air 09/05/24 20:00 Allergies Allergy/AdvReac Type Severity Reaction Status Date / Time No Known Allergies Allergy Verified 09/06/24 10:44 Home Medications ?Medication ?Instructions ?Recorded ?Confirmed ?Type polyethylene glycol 3350 17 1 g PO EVERY OTHER DAY 08/02/24 09/04/24 History gram/dose oral powder (Miralax) hydrocodone 5 mg-acetaminophen 325 1 tablet PO Q6H PRN pain #20 tabs 09/03/24 09/04/24 Rx mg tablet wheat dextrin 3 gram/3.8 gram oral 1.5 g PO DAILY 09/03/24 09/04/24 History powder (Benefiber Sugar Free (dextrin)) omeprazole 20 mg capsule,delayed 20 mg PO QHS 09/04/24 09/04/24 History release Patient hx anesthesia problems: none Family hx anesthesia problems: none Results Review: All pre-operative results and documents have been reviewed as part of the pre-operative evaluation. [facility] Past Medical History Medical History (Updated 09/06/24 @ 10:43 by Tyron Willson DO) Scoliosis Asthma Choledocholithiasis Acute cholecystitis Anxiety Surgical History Surgical History History of Family History Family History Grandparent S/P MAXWELL (total abdominal hysterectomy) Cervical cancer Mother S/P MAXWELL (total abdominal hysterectomy) Cervical cancer Social History Social History Smoking status: Never smoker Alcohol intake: current Drinks per week: 1 Substance use: never Substance use type: does not use Do You Feel Safe in your Home?: Yes Lack of Transportation: No Lack of Food: Never True Current Housing: I Have Housing Concerned About Future Housing: No Difficulty Paying Gas/Electric Bills: No Difficulty Paying for Meds: No Currently Unemployed: No Education: Master's Degree or Higher Difficulty w/ Childcare or Family Care: No Living arrangements: with family Spiritual care concerns: No Anes - Eval Final PreProcedure Day of Procedure 09/06/24 10:42 Patient weight: normal Heart: regular rate and rhythm Lungs: clear to auscultation Airway: Mallampati scale class II Neurological: alert and oriented Last oral intake: >/= 8 hours ASA classification: II Emergent: no Anesthetic plan: proceed Anesthesia type and monitoring: general ETT and standard monitoring Results Review: All pre-operative results and documents have been reviewed as part of the pre-operative evaluation. Informed Consent: The patient's anesthetic plan and its attendant risks and benefits were discussed with the patient/family/POA. Questions were solicited and answers provided to the satisfaction of the patient/family/POA.
--- NOTE | 2024-09-06 10:42 | PM.PNGS ---
Progress Note: A&P Assessment and Plan (1) Choledocholithiasis: Code(s): K80.50 - Calculus of bile duct without cholangitis or cholecystitis without obstruction Status: Acute Assessment and Plan: imaging reviewed and c/w retained distal CBD stones, will get ERCP today Subjective Subjective Date/Time Seen: 09/06/24 10:42 Interval history: still c right sided pain, nausea, was ok overnight Review of Systems Review of Systems: All systems reviewed & are unremarkable except as noted in HPI and below Exam Const: General: cooperative, no acute distress and uncomfortable Resp: Auscultation: clear to auscultation bilaterally Cardio: Rate: regular rate Rhythm: regular rhythm GI: Inspection: normal to inspection, distended and incision GI Palp: Yes abdominal tenderness, Yes Soft to palpation and Yes Tenderness to palpation present (GI) Objective Data Vital Signs Vital Signs: Vital Signs - 24 hr 09/05/24 12:00 09/05/24 16:00 09/05/24 20:00 Temperature 36.6 C 36.4 C 36.5 C Pulse Rate 81 75 78 Respiratory Rate 14 16 16 Blood Pressure 112/72 114/76 130/91 H Pulse Oximetry 97 97 100 Oxygen Delivery 09/05/24 20:00 09/06/24 00:00 09/06/24 04:00 Temperature 36.7 C 36.9 C Pulse Rate 72 71 Respiratory Rate 16 14 Blood Pressure 116/72 99/60 L Pulse Oximetry 100 96 Oxygen Delivery Room Air Intake/Output Intake/Output: Intake & Output 09/03/24 09/04/24 09/05/24 09/06/24 23:59 23:59 23:59 23:59 Intake Total 1050 3306.7 1550 Balance 1050 3306.7 1550 Meds/Results Medications: Active Medications Generic Name Dose Route Start Last Admin Trade Name Freq PRN Reason Stop Dose Admin Sodium Chloride 1,000 mls @ 125 mls/hr 09/04/24 20:55 09/06/24 05:48 Normal Saline Iv IV CONT 125 mls/hr .Q8H ETHEL Administration Ceftriaxone Sodium 1 gm in 50 mls @ 100 mls/hr 09/05/24 21:00 09/05/24 20:16 Rocephin 1 Gm/Ns 50 Ml IVPB 100 mls/hr Q24H ETHEL Administration Lactated Ringer's 1,000 mls @ 150 mls/hr 09/06/24 10:35 Lr - Lactated Ringers Iv IV CONT .Q6H40M ETHEL Morphine Sulfate 4 mg 09/04/24 20:53 09/06/24 08:12 Morphine Sulfate (*Crx) 4 Mg/Ml Inj IV PUSH 4 mg Q4H PRN Administration Pain Rated 7-10 Ondansetron HCl 4 mg 09/04/24 20:53 09/06/24 08:13 Ondansetron Inj 4 Mg/2 Ml Vial IV PUSH 4 mg Q4H PRN Administration Nausea Pantoprazole Sodium 40 mg 09/05/24 09:00 09/06/24 08:13 Pantoprazole Sodium Iv 40 Mg Vial IV PUSH 40 mg QAM ETHEL Administration Promethazine HCl 12.5 mg 09/04/24 20:53 09/06/24 02:56 Promethazine Hcl 25 Mg/Ml Ampul IV PUSH 12.5 mg Q6H PRN Administration Nausea Radiology Results: ITS Impressions Abdomen/Pelvis CT 09/04/24 19:55 IMPRESSION: 1. Small volume of pelvic ascites, likely physiologic. 2. Surgical changes of recent cholecystectomy. Hepatobiliary Scan Nuclear Medicine 09/05/24 15:28 IMPRESSION: 1. Retention of activity in the liver, which may be seen with severe hepatocellular dysfunction or common duct obstruction. 2. Insufficient activity in the biliary tree to assess for bile leak. MRCP 09/05/24 15:56 IMPRESSION: 1. Mild intra and extra hepatic biliary ductal dilation post recent cholecystectomy likely secondary to obstructing choledocholithiasis with a couple 2-3 mm filling defects in the distal common bile duct.
[2024-09-06] MEDS: LACTATED RINGERS 1,000 ML 150 ML IV CONT (10:53)
[2024-09-06] MEDS: INDOMETHACIN 50 MG SUPP.RECT RECTAL (11:31)
[2024-09-07 04:00] VITALS: BP 102/60; PULSE 82; RESP 14; TEMP 36.7; O2SAT 98
[2024-09-07 07:09] LABS: Alanine Aminotransferase 298 U/L (6-35); Alkaline Phosphatase 181 U/L (38-126); Anion Gap 5 mmol/L (4-12); Aspartate Amino Transferase 72 U/L (14-36); Bilirubin,Total 2.9 mg/dL (0.2-1.3); Blood Urea Nitrogen 5 mg/dL (7-17); Calcium 8.9 mg/dL (8.4-10.2); Carbon Dioxide 27 mmol/L (22-30); Chloride 104 mmol/L (98-107); Estimated CRCL calculation 96 ml/min; Estimated Glomerular Filt Rate > 60; Glucose 91 mg/dL (65-110); Potassium 3.5 mmol/L (3.4-5.0); Sodium 136 mmol/L (137-145)
[2024-09-07 08:00] VITALS: BP 120/88; PULSE 86; RESP 16; TEMP 36.8; O2SAT 99
[2024-09-07] MEDS: PANTOPRAZOLE SODIUM IV 40 MG VIAL IV PUSH (09:07)
--- NOTE | 2024-09-07 10:58 | P.DS_ITS ---
DS: Admitting Diagnosis Discharge Date 09/07/24 Admitting Diagnosis Hyperbilirubinemia, status post laparoscopic cholecystectomy DS: Discharge Diagnosis Discharge Diagnosis (1) Choledocholithiasis: Code(s): K80.50 - Calculus of bile duct without cholangitis or cholecystitis without obstruction Status: Acute (2) Status post laparoscopic cholecystectomy: Code(s): Z90.49 - Acquired absence of other specified parts of digestive tract Status: Acute DS: Summary Hospital Course Reason for hospitalization: Elevated liver enzymes Hospital Course: This is a 29-year-old woman who presented to the emergency department on 09/04/2024 with worsening abdominal pain. Her liver enzymes were elevated. CT showed normal postoperative findings with the small amount of pelvic ascites. She was admitted for further treatment. HIDA scan was initially performed which showed no evidence of bile leak but possible common bile duct obstruction. She then underwent abdominal MRI which showed evidence of choledocholithiasis. Gastroenterology was consulted and she underwent ERCP on 09/06/2024. Common bile duct stone was extracted and a pancreatic stent was placed. She was feeling much better after the procedure and denied any further abdominal pain. Her diet was able to be advanced as tolerated. On 09/07 her liver enzymes were improving and she was feeling much better. She was discharged on 09/07/2024. Status at Discharge Functional status at discharge: independent ambulation Overall status at discharge: patient is progressing back to baseline Time Spent with Patient Time attestation: Total time spent providing and/or coordinating discharge services: Time spent: Less than 30 minutes Exam Const: General: comfortable and no acute distress Orientation/consciousness: patient oriented x3 Resp: Effort & Inspection: normal respiratory effort Auscultation: clear to auscultation bilaterally Cardio: Rate: regular rate Rhythm: regular rhythm Heart sounds: S1 normal heart sound present and S2 normal heart sound present GI: Inspection: non-distended and incision (Intact with glue) GI Palp: Yes Soft to palpation, No Tenderness to palpation present (GI) and No Guarding due to palpation present (GI) DS: Data Data Completed and Pending Labs on day of discharge: Labs from last 24 hours 09/07/24 06:10 Sodium 136 L Potassium 3.5 Chloride 104 Carbon Dioxide 27 Anion Gap 5 BUN 5 L Creatinine 0.60 L Estim Creat Clear Calc 96 Estimated GFR > 60 Glucose 91 Calcium 8.9 Total Bilirubin 2.9 H AST 72 H ALT 298 H Alkaline Phosphatase 181 H Total Protein 7.0 Albumin 4.0 Imaging Radiologist's impression: ITS Impressions Abdomen/Pelvis CT 09/04/24 19:55 IMPRESSION: 1. Small volume of pelvic ascites, likely physiologic. 2. Surgical changes of recent cholecystectomy. Hepatobiliary Scan Nuclear Medicine 09/05/24 15:28 IMPRESSION: 1. Retention of activity in the liver, which may be seen with severe hepatocellular dysfunction or common duct obstruction. 2. Insufficient activity in the biliary tree to assess for bile leak. MRCP 09/05/24 15:56 IMPRESSION: 1. Mild intra and extra hepatic biliary ductal dilation post recent cholecystectomy likely secondary to obstructing choledocholithiasis with a couple 2-3 mm filling defects in the distal common bile duct. Endo Retro Cholangiopancreatogram 09/06/24 16:44 IMPRESSION: 1. Images demonstrate balloon sweeping of the mildly dilated common bile duct likely for removal of the previously noted distal choledocholithiasis. Please refer to the ERCP procedure note for additional details. 2. Placement of a likely pancreatic duct stent which is in expected position. Discharge Plan Discharge Attending physician on discharge: Cecilia Staton Consulting providers: Mack Lopez Discharging Clinician: Holger Escalante Patient Disposition: Home, Self-Care Activity: other - see discharge instructions Diet: low fat Wound Care Instructions: other - see discharge instructions Discharge Instructions: DISCHARGE INSTRUCTION SHEET FOR HERNIA, GALLBLADDER AND APPENDIX SURGERIES DR. ESCALANTE PATIENT TO TAKE HOME 1. May shower, no soaking in bath x 2weeks. 2. Call office for: * Wound increasingly painful or bleeding * Vomiting * Fever of greater than 101 degrees 3. If no bowel movement for three days, take 1 oz. (30 ml) Milk of Magnesia or MiraLax 17g 1 to 2 times daily. 4. No heavy lifting > 10-15 pounds x weeks for hernia repairs and 2 weeks for laparoscopic cholecystectomy or appendectomy. 5. No driving for 3 days or while taking narcotic pain medications. 6. Ice to surgical site for 48 hours (30 min on, then 30 min off). 7. Up walking 10-30 minutes three times per day. 8. Resume previous home medications. 9. Follow-up 10-14 days in office for wound check or as previously scheduled. ([id number]) 10. Oral pain medications prescription to be sent to pharmacy. Take Tylenol 500mg every 6 hours and Ibuprofen 600mg every 6 hours for the first 2 days, then as needed. 11. NUTRITION: Start out by drinking fluids and increase your diet as tolerated. If you experience nausea, try dry toast, crackers, and 7-UP. If nausea or vomiting persists, contact your surgeon?s office. 12. Gallbladders-Low Fat Diet for 2 weeks (send care note of low fat diet) 13. Inguinal Hernias-wear scrotal support for 48 hours 14. Abdominal Hernias-if sent home with abdominal binder, wear for the first 2 weeks (may remove to shower or at night to sleep). Revised January 2019 Patient Instructions: Antibiotic Form Patient Language: Polish Stand Alone Forms: General Discharge Information Follow-up/Referrals: Cecilia Staton MD [Physician] - Call for Appointment Discharge Medications: Continued Benefiber Sugar Free (dextrin) 3 gram/3.8 gram powder 1.5 g PO DAILY Rx Instructions: mix into at least 4 oz water or juice before administering hydrocodone-acetaminophen 5-325 mg tablet 1 tablet PO Q6H PRN (Reason: pain) Qty: 20 0RF polyethylene glycol 3350 [Miralax] 17 gram/dose Powder 1 g PO EVERY OTHER DAY omeprazole 20 mg capsule,delayed release(DR/EC) 20 mg PO QHS Date of admission: 09/06/24 09:45 Primary Care Provider: Amee Jackson Admitting Provider: Cecilia Staton Attending physician on admission: Cecilia Staton Condition: Stable
--- NOTE | 2024-09-07 16:12 | P.PNGI_ITS ---
Progress Note: A&P Assessment and Plan (1) Choledocholithiasis: Code(s): K80.50 - Calculus of bile duct without cholangitis or cholecystitis without obstruction Status: Acute Assessment and Plan: ercp yesterday with successful removal of stones after sphincterotomy and balloon sweeps, also PD stent to protect from pancreatitis will get kub in 3 weeks, if still there then will set up EGD to remove it she is going home today (2) Transaminitis: Code(s): R74.01 - Elevation of levels of liver transaminase levels Status: Acute Assessment and Plan: trending down doing well (3) Status post laparoscopic cholecystectomy: Code(s): Z90.49 - Acquired absence of other specified parts of digestive tract Status: Acute (4) Epigastric abdominal pain: Code(s): R10.13 - Epigastric pain Status: Acute Subjective Date/time seen: 09/07/24 09:15 Interval history: doing well and going home today ercp yesterday with removal stone and PD stent placement Review of Systems Review of Systems: All systems reviewed & are unremarkable except as noted in HPI and below Exam Const: General: comfortable and no acute distress Orientation/consciousness: patient oriented x3 HENMT: Face/Nose/Sinus: Normal nares present Eyes: Sclera: sclerae normal Neck: Neck: supple Resp: Effort & Inspection: normal respiratory effort Auscultation: clear to auscultation bilaterally Cardio: Rate: regular rate Rhythm: regular rhythm GI: Inspection: non-distended and incision (Intact with glue) GI Palp: Yes Soft to palpation, No Tenderness to palpation present (GI) and No Guarding due to palpation present (GI) Auscultation: normal bowel sounds Skin: General skin exam: normal color Neuro: Speech: normal speech Motor exam (neuro): 5/5 motor strength present throughout Extrem: General: normal to inspection Objective Data Vital Signs Vital Signs: Vital Signs - 24 hr 09/06/24 20:00 09/06/24 20:00 09/06/24 23:08 Temperature 97.2 F L 98.2 F Pulse Rate 68 85 Respiratory Rate 14 14 Blood Pressure 125/82 106/57 L Pulse Oximetry 100 97 Oxygen Delivery Room Air 09/07/24 04:00 09/07/24 08:00 Temperature 98.1 F 98.2 F Pulse Rate 82 86 Respiratory Rate 14 16 Blood Pressure 102/60 120/88 Pulse Oximetry 98 99 Oxygen Delivery Intake/Output Intake/Output: Intake & Output 09/04/24 09/05/24 09/06/24 09/07/24 23:59 23:59 23:59 23:59 Intake Total 1050 3306.7 2330 790 Balance 1050 3306.7 2330 790 Meds/Results Radiology Results: ITS Impressions Abdomen/Pelvis CT 09/04/24 19:55 IMPRESSION: 1. Small volume of pelvic ascites, likely physiologic. 2. Surgical changes of recent cholecystectomy. Hepatobiliary Scan Nuclear Medicine 09/05/24 15:28 IMPRESSION: 1. Retention of activity in the liver, which may be seen with severe he patocellular dysfunction or common duct obstruction. 2. Insufficient activity in the biliary tree to assess for bile leak. MRCP 09/05/24 15:56 IMPRESSION: 1. Mild intra and extra hepatic biliary ductal dilation post recent cholecystectomy likely secondary to obstructing choledocholithiasis with a couple 2-3 mm filling defects in the distal common bile duct. Endo Retro Cholangiopancreatogram 09/06/24 16:44 IMPRESSION: 1. Images demonstrate balloon sweeping of the mildly dilated common bile duct likely for removal of the previously noted distal choledocholithiasis. Please refer to the ERCP procedure note for additional details. 2. Placement of a likely pancreatic duct stent which is in expected position. Labs Labs: Laboratory Results - last 24 hr 09/07/24 06:10 Sodium 136 L Potassium 3.5 Chloride 104 Carbon Dioxide 27 Anion Gap 5 BUN 5 L Creatinine 0.60 L Estim Creat Clear Calc 96 Estimated GFR > 60 Glucose 91 Calcium 8.9 Total Bilirubin 2.9 H AST 72 H ALT 298 H Alkaline Phosphatase 181 H Total Protein 7.0 Albumin 4.0
== END 2024-09-07 10:42 | disposition home or self-care (01) | DRG 394 ==
LOC: ANHED 21:21 → ANH3MEDSUR 21:36
PROVIDERS: Internal Medicine Gastroenterology; Admitting Provider Surgery; Emergency Provider Physician Assistant; PCP Nurse Practitioner; Visit Provider Surgery
PROC: 0F7D8ZZ Dilation of Pancreatic Duct, Via Natural or Artificial Opening Endoscopic (ICD-10-PCS; CPT 43260; principal; 2024-09-06 15:00)
DX: K91.86 Retained cholelithiasis following cholecystectomy (principal); R17 Unspecified jaundice; E80.6 Other disorders of bilirubin metabolism; R74.01 Elevation of levels of liver transaminase levels; Z90.49 Acquired absence of other specified parts of digestive tract; Z20.822 Contact with and (suspected) exposure to COVID-19; Z28.21 Immunization not carried out because of patient refusal
CPT/HCPCS: 36415; 74177; 74183; 74329; 76376; 78226; 80053; 81001; 81025; 83690; 83735; 85025; 87637; 96365; 96366; 96367; 96374; 96375; 96376; 99285; A9270; A9537; A9577; C2625; G0378; J0330; J0696; J1100; J1200; J1885; J2003; J2270; J2405; J2470; J2550; J2704; J2765; J3480; J7030; J7040; J7120; Q9966; Q9967

== ENCOUNTER 2024-09-26 11:12 | Outpatient (CLI) | payer OTHER, SELFPAY ==
--- NOTE | ~2024-09-26 | XR_ITS ---
XR abdomen/kub 1V 09/26/2024 11:49 INDICATION: Assess for pancreatic stent. TECHNIQUE: KUB COMPARISON: 07/12/2024 FINDINGS: Bowel gas pattern is normal. There are cholecystectomy clips. No pancreatic stent is identi fied. There is a surgical clip in the pelvis. There is no evidence of free air, mass, organomegaly, a scites or obstruction. No abnormal calculi are seen. The bones appear intact. IMPRESSION: 1: No acute abdominal abnormality identified. Reviewed, dictated and finalized at location B. [facility]
[2024-09-26 12:04] LABS: Alanine Aminotransferase 38 U/L (6-35); Albumin Level 4.5 g/dL (3.5-5.1); Alkaline Phosphatase 108 U/L (38-126); Aspartate Amino Transferase 25 U/L (14-36); Bilirubin,Total 1.1 mg/dL (0.2-1.3)
== END 2024-09-26 11:13 | disposition home or self-care (01) ==
LOC: ANHLAB 11:13
PROVIDERS: Visit Provider Nurse Practitioner
DX: R74.01 Elevation of levels of liver transaminase levels (principal); K80.50 Calculus of bile duct without cholangitis or cholecystitis without obstruction; Z96.89 Presence of other specified functional implants
CPT/HCPCS: 36415; 74018; 80076